=== PATIENT | female | born 1955 | race Caucasian/White ===

== ENCOUNTER → 2016-09-28 | Outpatient (CLI) | payer BC ==
[2016-09-28 10:11] LABS: Basophils % (A) 1 %; CH 31.8; CHCM 34.5; Eosinophils # (A) 0.1 k/uL (0-0.7); Eosinophils % (A) 3 %; HDW 2.69; HGB 14.2 gm/dL (11.4-16.0); Luc # (Auto) 0.13; Luc % (Auto) 3; Lymphocytes # (A) 1.9 k/uL (1.0-4.8); Lymphocytes % (A) 37 %; MCH 31.3 pg (25.0-35.0); MCHC 33.8 g/dL (31.0-37.0); MCV 92.5 fL (80.0-100.0); Mean Platelet Volume 7.2; Monocytes # (A) 0.3 k/uL (0-1.0); Monocytes % (A) 6 %; Neutrophils # (A) 2.8 k/uL (1.3-7.7); Neutrophils % (A) 52 %; RBC 4.54 m/uL (3.80-5.40); RDW 13.3 % (11.5-15.5); WBC 5.3 k/uL (3.8-10.6); WBC (Perox) 5.42
[2016-09-28 10:30] LABS: Appearance,Urine Clear (Clear); Bilirubin,Urine Negative (Negative); Glucose,Urine (UA) Negative (Negative); Ketones,Urine Negative (Negative); Leukocyte Esterase,Urine Negative (Negative); Nitrite,Urine Negative (Negative); Protein,Urine Negative (Negative); Specific Gravity,Urine 1.002 (1.001-1.035); UA Billing (MACRO vs. MICRO) CHEM; Urobilinogen,Urine <2.0 mg/dL (<2.0)
[2016-09-28 10:44] LABS: ALT 21 U/L (9-52); AST 26 U/L (14-36); Alkaline Phosphatase 79 U/L (38-126); Anion Gap 11 mmol/L; Blood Urea Nitrogen 17 mg/dL (7-17); Calcium 9.4 mg/dL (8.4-10.2); Carbon Dioxide 26 mmol/L (22-30); Chloride 103 mmol/L (98-107); Cholesterol 246 mg/dL (<200); Glucose 107 mg/dL (74-99); HDL Cholesterol 71 mg/dL (40-60); Non-African American GFR(MDRD) >60 (>60 ml/min/1.73 sqM); Potassium 3.6 mmol/L (3.5-5.1); Sodium 140 mmol/L (137-145); Total Bilirubin 0.7 mg/dL (0.2-1.3); Total Protein 7.9 g/dL (6.3-8.2); Triglycerides 134 mg/dL (<150)
[2016-09-28 11:24] LABS: Hepatitis C Virus IgG Index 0.02
[2016-10-03 09:35] LABS: Hepatitis C Virus IgG Ab Negative (Negative)
== END | disposition home or self-care (01) ==
LOC: LABWHC1 09:32
PROVIDERS: ATTEND Internal Medicine
DX: E78.5 Hyperlipidemia, unspecified (principal); I10 Essential (primary) hypertension; E55.9 Vitamin D deficiency, unspecified; Z13.9 Encounter for screening, unspecified
CPT/HCPCS: 36415; 80053; 80061; 81003; 82306; 84443; 85025; 86803

== ENCOUNTER → 2016-10-18 | Outpatient (CLI) | payer BC ==
--- NOTE | 2016-10-19 08:07 | PN ---
61 -year-old female patient with known history of obstructive sleep apnea with an AHI of 57. Currently on CPAP Pressure of 8 cm of water. She is coming in for a follow-up. She remains very compliant with CPAP therapy. She is asking for a new mask and supplies. She is on AirFit P10 medium-sized nasal pillow. She is also requesting a portable CPAP unit knowing that she and her have been traveling a lot recently and she will benefit from a portable unit. She is waking up alert and awake. No major hypersomnia or sleepiness during the day. Balmorhea score is only 6. Her treatment has been successful. No recent weight gain or weight loss. No other new complaints or any other comorbidities for now. BP is 160/84, pulse 80, respirations 16, temperature 98.8. Saturation is 98% on room air. Weight is 173. Height is 5 feet 1 inch. BMI is 32.6. GENERAL APPEARANCE: Calm, comfortable. HEENT: Short neck, crowding posterior pharynx. There is no goiter or neck masses. LUNGS: Clear to auscultation. HEART: Heart sounds are regular rate and rhythm. Normal S1, S2. ABDOMEN: Soft, nontender. No organomegaly. EXTREMITIES: No edema. No cyanosis or clubbing. IMPRESSION: Severe symptomatic obstructive sleep apnea with an AHI of 57, currently on CPAP at a pressure of 8 cm of water. Treatment remains successful. PLAN: 1. I ordered patient a portable CPAP unit at the same pressure of 8 cm. 2. Refilled AirFit P10 nasal pillows medium size. 3. Encourage weight loss. 4. Implement good sleep hygiene measures. 5. See me back in a year's time, earlier if needed.
== END ==
LOC: SLEEP 16:45
PROVIDERS: ATTEND Internal Medicine Critical Care Medicine
DX: G47.33 Obstructive sleep apnea (adult) (pediatric) (principal)

== ENCOUNTER 2017-01-03 17:26 | Emergency (ER) | payer BC ==
[2017-01-03] MEDS ORDERED: SODIUM CHLORIDE 0.9% 1,000 ML IV STA (18:12)
--- NOTE | 2017-01-03 18:14 | ED ---
General Adult HPI - General Chief complaint: Abdominal Pain Stated complaint: left flank pain Time Seen by Provider: 01/03/17 18:03 Source: patient, RN notes reviewed Mode of arrival: ambulatory Limitations: physical limitation - History of Present Illness Initial comments: Patient 61-year-old female who presents emergency room today with chief complaint of left-sided flank pain. Does admit that over the last 2 days has been experiencing a "grabbing" type pain. Currently rates it a 6/10. Denies any other associated symptoms or complaints. States never had similar symptoms in the past. Patient does admit that sometimes she is able to move certain ways and make her feel better when she bends over. Patient states otherwise has a difficult time finding a comfortable position. Patient denies any recent fever, chills, shortness of breath, chest pain, abdominal pain, nausea or vomiting, numbness or tingling, dysuria or hematuria, constipation or diarrhea, headaches or visual changes, or any other complaints. - Related Data Home Medications Medication Instructions Recorded Confirmed Melatonin 3 mg PO HS PRN 10/16/13 01/03/17 Ramipril [Altace] 10 mg PO QAM 10/16/13 01/03/17 Vitamin B Complex 1 cap PO QAM 10/16/13 01/03/17 amLODIPine [Norvasc] 5 mg PO QAM 10/16/13 01/03/17 Ascorbic Acid [Vitamin C] 1,000 mg PO QAM 01/03/17 01/03/17 Aspirin EC [Ecotrin Low Dose] 81 mg PO HS 01/03/17 01/03/17 Calcium Carbonate/Vitamin D3 2 cap PO QAM 01/03/17 01/03/17 [Calcium 600-Vit D3 500 Softgel] Glucosamine-Chondr 500-400Mg 3 tab PO QAM 01/03/17 01/03/17 Krill Oil 500 mg PO QAM 01/03/17 01/03/17 Metoprolol Tartrate [Lopressor] 25 mg PO QAM 01/03/17 01/03/17 Multivitamins, Thera [Multivitamin 1 tab PO QAM 01/03/17 01/03/17 (formulary)] Previous Rx's Medication Instructions Recorded Cyclobenzaprine [Flexeril] 10 mg PO TID #20 tab 01/03/17 Hydrocodone/Acetaminophen [Ducor 1 each PO Q6HR PRN #15 tab 01/03/17 5-325] Allergies Allergy/AdvReac Type Severity Reaction Status Date / Time clarithromycin [From Biaxin] Allergy Unknown Verified 01/03/17 17:54 sumatriptan [From Imitrex] Allergy Rapid Verified 01/03/17 17:54 Heart Rate Tetracyclines Allergy Swelling Verified 01/03/17 17:54 linezolid [From Zyvox] AdvReac Weakness Verified 01/03/17 19:51 In Legs rosuvastatin calcium AdvReac Myalgia Verified 01/03/17 19:51 [From Crestor] sulfamethoxazole AdvReac Fever Verified 01/03/17 19:51 [From Bactrim] trimethoprim [From Bactrim] AdvReac Fever Verified 01/03/17 19:51 Review of Systems ROS Statement: Those systems with pertinent positive or pertinent negative responses have been documented in the HPI. ROS Other: All systems not noted in ROS Statement are negative. Past Medical History Past Medical History: Hyperlipidemia, Hypertension Additional Past Medical History / Comment(s): bigemminal PAC's, History of Any Multi-Drug Resistant Organisms: MRSA Date of last positivie culture/infection: 2008 MDRO Source:: right leg Past Surgical History: Tubal Ligation Additional Past Surgical History / Comment(s): D&C Past Psychological History: No Psychological Hx Reported Smoking Status: Never smoker Past Alcohol Use History: Occasional Past Drug Use History: None Reported General Exam - General Exam Comments Initial Comments: General: The patient is awake and alert, in no distress, and does not appear acutely ill. Eye: Pupils are equal, round and reactive to light, extra-ocular movements are intact. No nystagmus. There is normal conjunctiva bilaterally. No signs of icterus. Ears, nose, mouth and throat: There are moist mucous membranes and no oral lesions. Neck: The neck is supple, there is no tenderness or JVD. Cardiovascular: There is a regular rate and rhythm. No murmur, rub or gallop is appreciated. Respiratory: Lungs are clear to auscultation, respirations are non-labored, breath sounds are equal. No wheezes, stridor, rales, or rhonchi. Gastrointestinal: Soft, non-distended, non-tender abdomen without masses or organomegaly noted. There is no rebound or guarding present. No CVA tenderness. Bowel sounds are unremarkable. Musculoskeletal: Normal ROM, no tenderness. Strength 5/5. Sensation intact. Pulses equal bilaterally 2+. Neurological: A&O x 3. CN II-XII intact, There are no obvious motor or sensory deficits. Coordination appears grossly intact. Speech is normal. Skin: Skin is warm and dry and no rashes or lesions are noted. Psychiatric: Cooperative, appropriate mood & affect, normal judgment. Limitations: physical limitation Course Vital Signs 01/03/17 01/03/17 17:50 19:17 Temperature 98 F 98.3 F Pulse Rate 93 76 Respiratory 18 16 Rate Blood Pressure 133/93 143/77 O2 Sat by Pulse 98 96 Oximetry Medical Decision Making - Medical Decision Making Patient reexamined at this time shows no signs of distress. She is resting comfortably in stretcher. Patient's CT of the abdomen and pelvis negative for any acute abnormalities. Labs been reviewed unremarkable. Patient at this time advised most likely musculoskeletal pain. Will be tried on a muscle relaxer short prescription of pain medication advised follow-up the family doctor over the next 2 days. - Lab Data Result diagrams: 01/03/17 18:27 01/03/17 18:27 Lab Results 01/03/17 01/03/17 01/03/17 Range/Units 18:27 18:27 18:27 WBC 7.3 (3.8-10.6) k/uL RBC 4.71 (3.80-5.40) m/uL Hgb 15.1 (11.4-16.0) gm/dL Hct 41.9 (34.0-46.0) % MCV 88.9 (80.0-100.0) fL MCH 32.1 (25.0-35.0) pg MCHC 36.1 (31.0-37.0) g/dL RDW 12.8 (11.5-15.5) % Plt Count 355 (150-450) k/uL Neutrophils % 55 % Lymphocytes % 36 % Monocytes % 5 % Eosinophils % 2 % Basophils % 1 % Neutrophils # 4.0 (1.3-7.7) k/uL Lymphocytes # 2.6 (1.0-4.8) k/uL Monocytes # 0.4 (0-1.0) k/uL Eosinophils # 0.1 (0-0.7) k/uL Basophils # 0.0 (0-0.2) k/uL Sodium 143 (137-145) mmol/L Potassium 4.7 (3.5-5.1) mmol/L Chloride 106 (98-107) mmol/L Carbon Dioxide 24 (22-30) mmol/L Anion Gap 13 mmol/L BUN 17 (7-17) mg/dL Creatinine 0.70 (0.52-1.04) mg/dL Est GFR (MDRD) Af Amer >60 (>60 ml/min/1.73 sqM) Est GFR (MDRD) Non-Af >60 (>60 ml/min/1.73 sqM) Glucose 84 (74-99) mg/dL Calcium 10.2 (8.4-10.2) mg/dL Total Bilirubin 1.2 (0.2-1.3) mg/dL AST 37 H (14-36) U/L ALT 23 (9-52) U/L Alkaline Phosphatase 114 (38-126) U/L Total Protein 8.5 H (6.3-8.2) g/dL Albumin 5.0 (3.5-5.0) g/dL Amylase 63 (30-110) U/L Lipase 257 (23-300) U/L Urine Color Light Yellow Urine Appearance Cloudy H (Clear) Urine pH 6.5 (5.0-8.0) Ur Specific [place] 1.007 (1.001-1.035) Urine Protein Negative (Negative) Urine Glucose (UA) Negative (Negative) Urine Ketones Negative (Negative) Urine Blood Negative (Negative) Urine Nitrite Negative (Negative) Urine Bilirubin Negative (Negative) Urine Urobilinogen <2.0 (<2.0) mg/dL Ur Leukocyte Esterase Negative (Negative) Ur Squamous Epith Cells <1 (0-4) /hpf Amorphous Sediment Rare H (None) /hpf Disposition Clinical Impression: Acute low back pain Disposition: HOME SELF-CARE Condition: Good Instructions: Acute Low Back Pain (ED) Additional Instructions: Please use medication as discussed. Please follow-up with family doctor in the next 2 days of symptoms have not improved. Please return to emergency room if the symptoms increase or worsen or for any other concerns. Prescriptions: Cyclobenzaprine [Flexeril] 10 mg PO TID #20 tab Hydrocodone/Acetaminophen [Ducor 5-325] 1 each PO Q6HR PRN #15 tab PRN Reason: Pain Referrals: Alfredo Elder MD [Primary Care Provider] - 1-2 days Time of Disposition: 20:13
[2017-01-03 18:37] LABS: Basophils % (A) 1 %; CH 31.7; CHCM 35.8; Eosinophils # (A) 0.1 k/uL (0-0.7); Eosinophils % (A) 2 %; HCT 41.9 % (34.0-46.0); HDW 2.83; HGB 15.1 gm/dL (11.4-16.0); Luc # (Auto) 0.17; Luc % (Auto) 2; Lymphocytes # (A) 2.6 k/uL (1.0-4.8); Lymphocytes % (A) 36 %; MCH 32.1 pg (25.0-35.0); MCHC 36.1 g/dL (31.0-37.0); MCV 88.9 fL (80.0-100.0); Mean Platelet Volume 7.2; Monocytes # (A) 0.4 k/uL (0-1.0); Monocytes % (A) 5 %; Neutrophils % (A) 55 %; RBC 4.71 m/uL (3.80-5.40); RDW 12.8 % (11.5-15.5); WBC 7.3 k/uL (3.8-10.6)
[2017-01-03 18:43] LABS: Amorphous Sediment,Urine Rare /hpf; Appearance,Urine Cloudy (Clear); Bilirubin,Urine Negative (Negative); Glucose,Urine (UA) Negative (Negative); Ketones,Urine Negative (Negative); Leukocyte Esterase,Urine Negative (Negative); Nitrite,Urine Negative (Negative); PH, Urine 6.5 (5.0-8.0); Particle Count 1844; Protein,Urine Negative (Negative); Specific Gravity,Urine 1.007 (1.001-1.035); Squamous Epithelial Cell,Urine <1 /hpf (0-4); UA Billing (MACRO vs. MICRO) MICRO; Urobilinogen,Urine <2.0 mg/dL (<2.0)
[2017-01-03 18:46] LABS: ALT 23 U/L (9-52); AST 37 U/L (14-36); Alkaline Phosphatase 114 U/L (38-126); Amylase 63 U/L (30-110); Anion Gap 13 mmol/L; Blood Urea Nitrogen 17 mg/dL (7-17); Calcium 10.2 mg/dL (8.4-10.2); Carbon Dioxide 24 mmol/L (22-30); Chloride 106 mmol/L (98-107); Glucose 84 mg/dL (74-99); Non-African American GFR(MDRD) >60 (>60 ml/min/1.73 sqM); Sodium 143 mmol/L (137-145); Total Bilirubin 1.2 mg/dL (0.2-1.3); Total Protein 8.5 g/dL (6.3-8.2)
[2017-01-03 18:49] LABS: Potassium 4.7 mmol/L (3.5-5.1)
--- NOTE | 2017-01-03 19:01 | XR ---
EXAMINATION TYPE: XR KUB DATE OF EXAM: 01/03/2017 COMPARISON: NONE HISTORY: Left flank pain TECHNIQUE: 2 upright radiographs FINDINGS: There are no calcifications visible over the kidneys, expected course of the ureters, or th e bladder. Bowel gas pattern is normal. No pneumatosis. No pneumoperitoneum. The skeletal structures and visuali zed soft tissues are unremarkable as seen. The visualized lung bases and pleural spaces are unremarkable. IMPRESSION: NO ACUTE PROCESS OR FOCAL FINDINGS.
[2017-01-03 19:19] VITALS: RESP 16
--- NOTE | 2017-01-03 19:49 | CT ---
EXAMINATION TYPE: CT abdomen pelvis wo con DATE OF EXAM: 01/03/2017 COMPARISON: NONE HISTORY: Left flank pain x [address] DLP: 622.20 mGycm. Automated exposure control for dose reduction was used. TECHNIQUE: Helical acquisition of images was performed from the lung bases through the pelvis. FINDINGS: LUNG BASES: No significant abnormality is appreciated. LIVER/GB: No significant abnormality is appreciated. PANCREAS: No significant abnormality is seen. SPLEEN: No significant abnormality is seen. ADRENALS: No significant abnormality is seen. KIDNEYS: There are bilateral nonobstructing renal calcifications measuring 1 and 2 mm. There is no hy dronephrosis. The ureters and urinary bladder are unremarkable. FREE AIR: No free air is visualized RETROPERITONEAL ADENOPATHY: None visualized REPRODUCTIVE ORGANS: No significant abnormality is seen PELVIC ADENOPATHY: None visualized. OSSEOUS STRUCTURES: No significant abnormality is seen. BOWEL: No significant abnormality is seen. OTHER: No focal skeletal findings. Limitation: Without intravenous contrast there is limited CT sensitivity for focal visceral lesions a nd for intraluminal filling defects. IMPRESSION: NO ACUTE PROCESS.
[2017-01-03 20:36] VITALS: BP 128/70; PULSE 74; TEMP 98
== END 2017-01-03 20:33 | disposition home or self-care (01) ==
LOC: EC 17:26
DX: M54.5 Low back pain (principal); R10.9 Unspecified abdominal pain; E78.5 Hyperlipidemia, unspecified; I10 Essential (primary) hypertension; Z79.82 Long term (current) use of aspirin; Z79.899 Other long term (current) drug therapy; Z88.1 Allergy status to other antibiotic agents; Z88.2 Allergy status to sulfonamides; Z88.8 Allergy status to other drugs, medicaments and biological substances
CPT/HCPCS: 36415; 74000; 74176; 80053; 81001; 82150; 83690; 85025; 96360; 99284

== ENCOUNTER → 2017-05-04 | Outpatient (CLI) | payer BC ==
--- NOTE | 2017-05-04 08:18 | MM ---
Reason for exam: screening (asymptomatic). Last mammogram was performed 1 year and 3 months ago. History: Patient is postmenopausal. Family history of breast cancer in mother at age 65. Benign core biopsy of the right breast, 1994. Physical Findings: A clinical breast exam by your physician is recommended on an annual basis and results should be correlated with mammographic findings. MG Screening Mammo w CAD Bilateral CC and MLO view(s) were taken. Prior study comparison: February 17, 2016, bilateral foundation screening mammo. October 07, 2014, bilateral MG screening mammo w CAD. The breast tissue is heterogeneously dense. This may lower the sensitivity of mammography. Stable benign calcifications. Waxing and waning lesion consistent with cysts. No significant changes when compared with prior studies. ASSESSMENT: Benign, BI-RAD 2 RECOMMENDATION: Routine screening mammogram of both breasts in 1 year.
== END | disposition home or self-care (01) ==
LOC: RADMAMWWP 09-07 15:21
PROVIDERS: ATTEND Surgery
DX: Z12.31 Encounter for screening mammogram for malignant neoplasm of breast (principal)

== ENCOUNTER → 2018-05-10 | Outpatient (CLI) | payer BC ==
--- NOTE | 2018-05-14 09:29 | MM ---
Reason for exam: screening (asymptomatic). Last mammogram was performed 1 year ago. History: Patient is postmenopausal. Family history of breast cancer in mother at age 65. Benign core biopsy of the right breast, 1994. Physical Findings: A clinical breast exam by your physician is recommended on an annual basis and results should be correlated with mammographic findings. MG 3D Screening Mammo W/Cad Bilateral CC and MLO view(s) were taken. Prior study comparison: May 04, 2017, bilateral MG screening mammo w CAD. February 17, 2016, bilateral MG foundation screening mammo. The breast tissue is heterogeneously dense. This may lower the sensitivity of mammography. No significant changes when compared with prior studies. ASSESSMENT: Benign, BI-RAD 2 RECOMMENDATION: Routine screening mammogram of both breasts in 1 year.
== END | disposition home or self-care (01) ==
LOC: RADMAMWWP 09:35
PROVIDERS: ATTEND Surgery
DX: Z12.31 Encounter for screening mammogram for malignant neoplasm of breast (principal)
CPT/HCPCS: 77063; 77067

== ENCOUNTER → 2018-05-25 | Outpatient (CLI) | payer BC ==
[2018-05-25 11:41] VITALS: BP 141/76; PULSE 73; RESP 16; TEMP 97; BMI 30.9
--- NOTE | 2018-05-25 12:16 | P.GSHP ---
History of Present Illness H&P Date: 05/25/18 Chief Complaint: fibrocystic breast changes Britany is a 63-year-old white female who is status post bilateral mammogram in April 2018. This did not show any specific lesions of concern it was benign BIRADS 2 and routine screening of both breasts 1 year is recommended. The patient does not feel any masses or lumps in her breast. She did have benign core biopsy of the right breast in 1994. She does have a family history of breast cancer in her mother at the age of 65. The patient does not report any nipple discharge or skin changes. She has no history of any trauma or infection in the breast. Family history: 1. mother: breast at 65 Hormonal History: menarche: 13 : 3, first at 30, breast fed: all menopause: 47 BCP:none hormones: none Past past surgical history: 1. D&C 2. tubaligation Medical History 1. HTN 2. palpatation Social Hisotory: smoke: none alcohol: occasional drugs: none - Constitutional Constitutional: Denies chills, Denies fever - EENT Eyes: denies blurred vision, denies pain Ears, nose, mouth and throat: Denies headache, Denies sore throat - Breasts Breasts: bilateral: as per HPI - Cardiovascular Comment: palpitations, HTN Cardiovascular: Denies chest pain, Denies shortness of breath - Respiratory Comment: pneumonia in past Respiratory: Denies cough, Denies 7 - Gastrointestinal Gastrointestinal: Denies abdominal pain, Denies diarrhea, Denies nausea, Denies vomiting - Genitourinary (Female) Genitourinary: Denies dysuria, Denies hematuria - Menstruation Menstruation: Reports postmenopausal - Musculoskeletal Musculoskeletal: Denies myalgias - Integumentary Integumentary: Denies pruritus, Denies rash - Neurological Neurological: Denies numbness, Denies weakness - Psychiatric Psychiatric: Denies anxiety, Denies depression - Endocrine Endocrine: Denies fatigue, Denies weight change - Hematologic/Lymphatic Comment: aspirin - Allergic/Immunologic Allergic/Immunologic: Reports seasonal allergies Past Medical History Past Medical History: Hyperlipidemia, Hypertension Additional Past Medical History / Comment(s): bigemminal PAC's, History of Any Multi-Drug Resistant Organisms: MRSA Date of last positivie culture/infection: 2008 MDRO Source:: right leg Past Surgical History: Tubal Ligation Additional Past Surgical History / Comment(s): D&C Past Psychological History: No Psychological Hx Reported Smoking Status: Never smoker Past Alcohol Use History: Occasional Past Drug Use History: None Reported Medications and Allergies Home Medications Medication Instructions Recorded Confirmed Type Melatonin 3 mg PO HS PRN 10/16/13 05/25/18 History Vitamin B Complex 1 cap PO QAM 10/16/13 05/25/18 History amLODIPine [Norvasc] 5 mg PO QAM 10/16/13 05/25/18 History Ascorbic Acid [Vitamin C] 1,000 mg PO QAM 01/03/17 05/25/18 History Aspirin EC [Ecotrin Low Dose] 81 mg PO HS 01/03/17 05/25/18 History Calcium Carbonate/Vitamin D3 2 cap PO QAM 01/03/17 05/25/18 History [Calcium 600-Vit D3 500 Softgel] Glucosamine-Chondr 500-400Mg 3 tab PO QAM 01/03/17 05/25/18 History Krill Oil 500 mg PO QAM 01/03/17 05/25/18 History Metoprolol Tartrate [Lopressor] 25 mg PO QAM PRN 01/03/17 05/25/18 History Multivitamins, Thera [Multivitamin 1 tab PO QAM 01/03/17 05/25/18 History (formulary)] Losartan Potassium 100 mg PO DAILY 05/25/18 05/25/18 History Nadolol [Corgard] 20 mg PO DAILY 05/25/18 05/25/18 History Allergies Allergy/AdvReac Type Severity Reaction Status Date / Time clarithromycin [From Biaxin] Allergy Unknown Verified 05/25/18 11:41 sumatriptan [From Imitrex] Allergy Rapid Verified 05/25/18 11:41 Heart Rate Tetracyclines Allergy Swelling Verified 05/25/18 11:41 linezolid [From Zyvox] AdvReac Weakness Verified 05/25/18 11:41 In Legs rosuvastatin calcium AdvReac Myalgia Verified 05/25/18 11:41 [From Crestor] sulfamethoxazole AdvReac Fever Verified 05/25/18 11:41 [From Bactrim] trimethoprim [From Bactrim] AdvReac Fever Verified 05/25/18 11:41 Surgical - Exam Vital Signs Temp Pulse Resp BP Pulse Ox 97.0 F L 73 16 141/76 98 05/25/18 11:37 05/25/18 11:37 05/25/18 11:37 05/25/18 11:37 05/25/18 11:37 BMI 31 - General well developed, well nourished, no distress - Eyes normal ocular movement, no icteric - ENT no hearing loss, no congestion - Neck no masses, trachea midline - Respiratory normal respiratory effort, clear to auscultation - Cardiovascular Rhythm: regular Heart Sounds: normal: S1, S2 - Abdomen Abdomen: soft, non tender, no guarding, no rigid, no rebound - Integumentary Small skin change on the left forearm for which patient is been recommended to have excision no rash - Neurologic no disoriented, no combative - Musculoskeletal normal gait, normal posture - Psychiatric oriented to time, oriented to person, oriented to place, speech is normal, memory intact breast exam: right breast: multipositional exam no dominant masses or nodules of concern Right axilla: No adenopathy of concern Left breast: Multi-positional exam no dominant masses or nodules of concern Left axilla: No adenopathy of concern Results Mammogram results reviewed Assessment and Plan Assessment: Impression: 1. Fibrocystic breast changes 2. Hypertension 3. Intermittent palpitations 4. family history of breast cancer Plan: 1. Repeat bilateral mammogram in 1 year with physician exam at that time 2. Medical management of medical conditions CC: Alfredo Elder
== END | disposition home or self-care (01) ==
LOC: WWCWWP 11:05
PROVIDERS: ATTEND Surgery
DX: Z53.9 Procedure and treatment not carried out, unspecified reason (principal)

== ENCOUNTER → 2018-06-12 | Outpatient (CLI) | payer BC ==
--- NOTE | 2018-06-12 17:30 | PN ---
PROGRESS NOTE Britany is a 63-year-old female patient with severe obstructive sleep apnea with an AHI of 57. I saw this patient in my main office approximately 2 months ago and I offered her a new CPAP machine, knowing that her older machine was not functioning appropriately. The patient is coming in today for a compliancy check. She is very happy with her new machine. She was obtained heated tubing, which has made the humidification airways and her upper and lower airways much more comfortable. The patient is using her CPAP every night. Her compliancy for more than 4 hours is 100%. She is averaging about 7.9 hours of CPAP use per night. Leak is 8 L/minute. AHI is down to 2.8. Her [place] score is down to 2. The patient is alert and awake during the day. No recent weight gain or weight loss. She is utilizing an AirFit P10 medium- sized nose mask. She is benefitting from treatment. She has no specific complaints. PHYSICAL EXAMINATION: BP is 135/85, pulse 82, respirations 16, temperature 98.2, saturation 95% on room air. GENERAL APPEARANCE: Calm, comfortable. No acute distress. Head is atraumatic, normocephalic. NECK: Supple. No JVD. No goiter or neck mass. LUNGS: Clear to auscultation. Heart sounds are regular rate and rhythm. Normal S1, S2. No S3, S4. No murmurs. ABDOMEN: Soft, nontender. No organomegaly. EXTREMITIES: No edema. No cyanosis or clubbing. NEUROLOGIC: Alert and oriented x3. No focal neurological deficit. PSYCHIATRIC: Negative for anxiety or depression. IMPRESSION: Severe obstructive sleep apnea; apnea/hypopnea index of 57, currently on CPAP pressure of 8 with excellent clinical response and compliance. PLAN: 1. Continue same pressure setting. 2. Continue same mask interface. 3. No need for any further adjustment. The machine was checked. The patient is compliant. See me back in a year's time, earlier if needed. MMODL / IJN: [id number] /
== END | disposition home or self-care (01) ==
LOC: SLEEP 15:43
PROVIDERS: ATTEND Internal Medicine Critical Care Medicine
DX: G47.33 Obstructive sleep apnea (adult) (pediatric) (principal); Z99.89 Dependence on other enabling machines and devices

== ENCOUNTER → 2018-12-27 | Outpatient (CLI) | payer BC ==
[2018-12-27 18:58] LABS: African American GFR (CKD) 112.4 (60.0-200.0); Anion Gap 10.2 mmol/L (4.00-12.00); BUN/Creat Ratio 26.67 Ratio (12.00-20.00); Calcium 9.2 mg/dL (8.7-10.3); Carbon Dioxide 26.8 mmol/L (21.6-31.8); LDL Cholesterol,Calculated 173.4 mg/dL (0.0-131.0); Potassium 3.9 mmol/L (3.5-5.5); VLDL Calculation 27.6 mg/dL (5.00-40.00)
[2018-12-27 19:06] LABS: T4, Free (Free Thyroxine) 1.1 ng/dL (0.80-1.80)
== END | disposition home or self-care (01) ==
LOC: LABWHC1 13:08
PROVIDERS: ATTEND Nurse Practitioner Adult Health
DX: E78.2 Mixed hyperlipidemia (principal); E03.9 Hypothyroidism, unspecified
CPT/HCPCS: 36415; 80048; 80061; 84439; 84443

== ENCOUNTER → 2019-05-23 | Outpatient (CLI) | payer BC ==
--- NOTE | 2019-05-24 14:27 | MM ---
Reason for exam: screening (asymptomatic). Last mammogram was performed 1 year ago. History: Patient is postmenopausal. Family history of breast cancer in mother at age 65. Benign core biopsy of the right breast, 1994. Physical Findings: A clinical breast exam by your physician is recommended on an annual basis and results should be correlated with mammographic findings. MG 3D Screening Mammo W/Cad Bilateral CC and MLO view(s) were taken. Prior study comparison: May 10, 2018, bilateral MG 3d screening mammo w/cad. May 04, 2017, bilateral MG screening mammo w CAD. The breast tissue is heterogeneously dense. This may lower the sensitivity of mammography. There is chronic nodularity bilaterally. There is no discrete abnormality. ASSESSMENT: Benign, BI-RAD 2 RECOMMENDATION: Routine screening mammogram of both breasts in 1 year.
== END | disposition home or self-care (01) ==
LOC: RADMAMWWP 11:03
PROVIDERS: ATTEND Surgery
DX: Z12.31 Encounter for screening mammogram for malignant neoplasm of breast (principal)
CPT/HCPCS: 77063; 77067

== ENCOUNTER → 2019-05-30 | Outpatient (CLI) | payer BC ==
[2019-05-30 10:51] VITALS: BP 133/75; PULSE 78; RESP 16; TEMP 98.4
--- NOTE | 2019-05-30 11:14 | P.PN ---
Subjective Progress Note Date: 05/30/19 Principal diagnosis: Surveillance fibrocystic breast changes Britany a 64-year-old white female who presents for breast examination secondary to fibrocystic breast changes. She underwent a bilateral mammogram on 1919 which revealed benign BIRADS 2 findings. This showed chronic nodularity bilaterally with no discrete abnormality. The patient does not report any lumps masses or nodules in her breasts. She is not complaining of any pain in her breast. She has no history of any trauma to her breast. No recent infection in her breast. Patient does not use any sort products. She does not take any hormone replacement. Caffeine: Negative Smoke: Negative Chocolate: Occasional Family history: Mother: Breast cancer at 65 Hormonal history: Menarche: 13 Pregnancies: 3, first at 30, breast-fed: All Menopause: 47 control pills: Negative Hormones: Negative Past surgical history: 1. D&C 2. Tubal ligation Medical history: Hypertension 2. Palpitation Social history: Spell: Negative Alcohol: Negative Drugs: Negative Constitutional: HEENT: Negative Cardiovascular: Palpitations at times Respiratory: Negative GI: Negative : Negative Musculoskeletal: Lower back pain Neurologic: Negative Psychiatric: Negative Endocrine: Negative Hematologic: Aspirin daily Objective - Vital Signs Vital signs: Vital Signs Temp 98.4 F 05/30/19 10:48 Pulse 78 05/30/19 10:48 Resp 16 05/30/19 10:48 BP 133/75 05/30/19 10:48 Pulse Ox 99 05/30/19 10:48 Intake & Output 05/29/19 05/30/19 05/30/19 18:59 06:59 18:59 Weight 79.379 kg - Exam BMI 31 - Constitutional General appearance: Present: average body habitus - EENT Eyes: Present: EOMI ENT: Present: hearing grossly normal - Neck Details: no adenopathy of concern Neck: Present: normal ROM Thyroid: bilateral: normal size - Respiratory Respiratory: bilateral: CTA - Cardiovascular Rhythm: regular Heart sounds: normal: S1, S2 - Gastrointestinal General gastrointestinal: Present: normal bowel sounds, soft - Integumentary Integumentary: Present: normal turgor - Musculoskeletal Musculoskeletal: Present: gait normal - Psychiatric Psychiatric: Present: A&O x's 3, appropriate affect, intact judgment & insight - Additional findings Additional findings: breast exam: bra 38C Inspection: No upper inversion, there is some minimal dimpling at the lateral aspect of each nipple area complex which is non-worrisome when the arms are placed otherwise no skin lesions of concern Right breast: Multi-positional exam no dominant masses or nodules of concern fibrocystic changes Right axilla: No adenopathy of concern Left breast: Multi-positional exam fibrocystic changes no dominant mass or not chills of concern Left axilla: No adenopathy of concern Assessment and Plan Assessment: Impression: 1. fibrocystic breast changes 2. Hypertension 3. Intermittent palpitations 4. Family history of breast cancer Plan: 1. Repeat bilateral mammogram in 1 year with physical exam at that time 2. Medical management of medical conditions 3. patient does breast self exam we have discussed this We have discussed fibrocystic breast changes. The patient does not smoke or drink caffeinated beverages. She does eat chocolate occasionally. We've also discussed the fact that she has some mild dimpling at the lateral aspect of the periareolar region bilaterally and she is going to watch this. There is nothing radiographically of concern at this site and there is nothing on physical exam palpated of concern at the sites. The patient will continue to do breast self exams and we have discussed the method for this. Cc: Dr. Elder encounter 15 minutes, > 50% of time in planning and counselling.
== END ==
LOC: WWCWWP 10:41
PROVIDERS: ATTEND Surgery
DX: Z53.9 Procedure and treatment not carried out, unspecified reason (principal)

== ENCOUNTER → 2020-05-26 | Outpatient (CLI) | payer MEDICARE ==
--- NOTE | 2020-05-27 13:28 | MM ---
Reason for exam: screening (asymptomatic). Last mammogram was performed 1 year ago. History: Patient is postmenopausal. Family history of breast cancer in mother at age 65. Benign core biopsy of the right breast, 1994. Physical Findings: A clinical breast exam by your physician is recommended on an annual basis and results should be correlated with mammographic findings. MG 3D Screening Mammo W/Cad Bilateral CC and MLO view(s) were taken. Prior study comparison: May 23, 2019, bilateral MG 3d screening mammo w/cad. May 10, 2018, bilateral MG 3d screening mammo w/cad. The breast tissue is heterogeneously dense. This may lower the sensitivity of mammography. There are benign appearing round calcifications bilaterally. There is chronic nodularity bilaterally. There is no discrete abnormality. Right skin lesions with calcifications. ASSESSMENT: Benign, BI-RAD 2 RECOMMENDATION: Routine screening mammogram of both breasts in 1 year.
== END | disposition home or self-care (01) ==
LOC: RADMAMWWP 09:01
PROVIDERS: ATTEND Surgery
DX: Z12.31 Encounter for screening mammogram for malignant neoplasm of breast (principal)
CPT/HCPCS: 77063; 77067

== ENCOUNTER → 2020-05-29 | Outpatient (CLI) | payer BC, MEDICARE ==
[2020-05-29 10:08] VITALS: BP 151/78; PULSE 77; RESP 18; TEMP 98.9
--- NOTE | 2020-05-29 10:36 | P.PN ---
Subjective Progress Note Date: 05/29/20 Principal diagnosis: Surveillance fibrocystic disease Surveillance fibrocystic breast changes Britany a 64-year-old white female who presents for breast examination secondary to fibrocystic breast changes. She underwent a bilateral mammogram on 05-26-20 which was benign BIRADS 2 findings. This showed chronic nodularity bilaterally with no discrete abnormality. The patient does not report any lumps masses or nodules in her breasts. She is not complaining of any nipple discharge. She did have a superficial folliculitis on the left breast which is resolving. She is not complaining of any pain in her breast. She has no history of any trauma to her breast. No recent infection in her breast. Patient does not use any soy products. She does not take any hormone replacement. Caffeine: Negative Smoke: Negative Chocolate: Occasional Family history: Mother: Breast cancer at 65 Hormonal history: Menarche: 13 Pregnancies: 3, first at 30, breast-fed: All Menopause: 47 control pills: Negative Hormones: Negative Past surgical history: 1. D&C 2. Tubal ligation 3. total knee replacement left Medical history: 1. Hypertension 2. Palpitation Social history: Smoke: Negative Alcohol: Negative Drugs: Negative Constitutional: HEENT: Negative Cardiovascular: Palpitations at times Respiratory: Negative GI: Negative : Negative Musculoskeletal: Lower back pain Neurologic: Negative Psychiatric: Negative Endocrine: Negative Hematologic: Aspirin daily Objective - Vital Signs Vital signs: Vital Signs Temp 98.9 F 05/29/20 10:06 Pulse 77 05/29/20 10:06 Resp 18 05/29/20 10:06 BP 151/78 05/29/20 10:06 Pulse Ox 96 05/29/20 10:06 Intake & Output 05/28/20 05/29/20 05/29/20 18:59 06:59 18:59 Weight 77.111 kg - Exam BMI 30.1 - Constitutional General appearance: Present: average body habitus - EENT Eyes: Present: EOMI ENT: Present: hearing grossly normal - Respiratory Respiratory: bilateral: CTA - Cardiovascular Rhythm: regular Heart sounds: normal: S1, S2 - Gastrointestinal General gastrointestinal: Present: normal bowel sounds, soft - Musculoskeletal Musculoskeletal Comment(s): recent left knee replacement Musculoskeletal: Present: gait normal - Psychiatric Psychiatric: Present: A&O x's 3, appropriate affect - Additional findings Additional findings: breast exam: BRA: 38C inspection: no nipple invasion; minimal dimpling with the arms extended at the lateral aspect of each upper outer quadrant area which has not changed from last year Palpation: Right breast: Multi-positional exam no dominant masses or nodules of concern fibrocystic changes Right axilla: No adenopathy of concern Left breast: Multi-positional exam no dominant masses or nodules of concern, fibrocystic changes; infection under her left breast, minimal area of folliculitis on the left periareolar area which is resolving Left axilla: No adenopathy of concern Assessment and Plan Assessment: Impression: 1. Fibrocystic breast changes 2. Hypertension 3. Intermittent palpitations 4. Family history of breast cancer 5. Fungal infection under her left breast patient has nystatin cream A folliculitis of the left breast which is resolving Plan: 1. Continue nystatin and antibiotic which was given for folliculitis 2. Bilateral mammogram in 1 year physician exam 2. Medical management of medical conditions Cc: encounter 15 minutes, > 50% of time in planning and counselling
== END | disposition home or self-care (01) ==
LOC: WWCWWP 09:46
PROVIDERS: ATTEND Surgery
DX: Z53.9 Procedure and treatment not carried out, unspecified reason (principal)

== ENCOUNTER → 2020-06-16 | Outpatient (CLI) | payer MEDICARE ==
[2020-06-16 22:40] LABS: Basophils # (A) 0.04 X 10*3/uL (0.00-0.10); Basophils % (A) 0.5 %; Eosinophils # (A) 0.03 X 10*3/uL (0.04-0.35); Eosinophils % (A) 0.4 %; HCT 41.3 % (37.2-46.3); HGB 14.7 g/dL (12.0-15.0); Lymphocytes % (A) 23.9 %; MCH 31.7 pg (27.0-32.0); MCHC 35.6 g/dL (32.0-37.0); MCV 89.2 fL (80.0-97.0); Mean Platelet Volume 11.1 fL (9.5-12.2); Monocytes # (A) 0.64 X 10*3/uL (0.20-1.00); Monocytes % (A) 8.5 %; Neutrophils # (A) 4.99 X 10*3/uL (1.80-7.70); Neutrophils % (A) 66.4 %; Platelet Count 377 X 10*3/uL (140-440); RBC 4.63 X 10*6/uL (4.10-5.20); RDW 12.5 % (11.5-14.5); WBC 7.52 X 10*3/uL (4.50-10.00)
[2020-06-17 01:19] LABS: Erythrocyte Sedimentation Rate 29 mm/Hr (0-30)
== END | disposition home or self-care (01) ==
LOC: LABWHC1 14:38
PROVIDERS: ATTEND Internal Medicine
DX: R53.83 Other fatigue (principal)
CPT/HCPCS: 36415; 82375; 82550; 85025; 85652

== ENCOUNTER → 2021-04-06 | Outpatient (CLI) | payer MEDICARE ==
--- NOTE | 2021-04-06 16:41 | PN ---
PROGRESS NOTE 65-year-old female patient with known history of obstructive sleep apnea with an AHI of 57, and the patient is coming in for annual check regarding obstructive sleep apnea. She continues to be using CPAP therapy at a pressure of 8 cm of water. She is using AirFit P10 medium-size nasal pillows. Doing well. No specific complaints in terms of her sleep apnea. Based on the compliance data evaluation, the patient has been averaging around 7.1 hour of CPAP use per night. Her CPAP use for more than 4 hours is 100%. Her AHI is down to 1.5 with a leak of 18 L/minute. No weight loss or weight gain. The patient's blood pressure is noted to be slightly elevated. She is working with Cardiology for a tighter blood pressure control. She was taken off the [facility] as the patient had developed increased edema in lower extremities bilaterally. She is on nadolol for now in combination with losartan. She is post Covid 19 vaccination. She was also diagnosed having lumbar spine stenosis which has caused some increased weakness lower extremities bilaterally. REVIEW OF SYSTEMS: Fourteen-point review of system was done. Positive for some post vaccination weakness in lower extremities which ultimately turned out to be related to spinal stenosis. She has also undergone a left knee replacement. No fever. No chills. No hypersomnia or sleepiness during the day. No other new complaints. Weight is stable. PHYSICAL EXAMINATION: VITAL SIGNS: BP is 176/88, pulse 78, respirations 16, temperature 97.6. Saturation 98% on room air. Height is 5 feet 1 inch, weight is 150. BMI 28.1. [place] score is at 4. GENERAL APPEARANCE: Calm, comfortable. Head is atraumatic normocephalic. NECK: Supple. No JVD. No goiter or neck masses. Mallampati class 4. LUNGS: Clear to auscultation. HEART: Heart sounds are regular rate and rhythm. Normal S1, S2. No S3, no murmurs. ABDOMEN: Soft, nontender. No organomegaly. EXTREMITIES: No edema, no cyanosis or clubbing. IMPRESSION: 1. Obstructive sleep apnea AHI of 57 currently on CPAP pressure of 8. Treatment successful. 2. Hypersomnia. [place] score is down to 4. Clinically stable. 3. Post Covid 19 vaccination. 4. Lumbar spine stenosis. 5. Degenerative arthritis, post knee replacement. 6. Hypertension with suboptimal control of blood pressure. PLAN: 1. Continue CPAP at same level of pressure. 2. Renew supplies including the AirFit P 10 medium-size nasal pillow. 3. Follow up with Cardiology regarding tighter blood pressure control. Consider the addition of a hydrochlorothiazide as an adjunct for a tighter blood pressure control. We will continue to follow. MMODL / IJN: [id number] /
== END ==
LOC: SLEEP 14:04
PROVIDERS: ATTEND Internal Medicine Critical Care Medicine
DX: G47.33 Obstructive sleep apnea (adult) (pediatric) (principal); M48.061 Spinal stenosis, lumbar region without neurogenic claudication; I10 Essential (primary) hypertension; Z96.659 Presence of unspecified artificial knee joint; Z99.89 Dependence on other enabling machines and devices; Z88.1 Allergy status to other antibiotic agents; Z88.2 Allergy status to sulfonamides; Z88.8 Allergy status to other drugs, medicaments and biological substances

== ENCOUNTER → 2021-04-23 | Outpatient (CLI) | payer MEDICARE ==
[~2021-04-23] MED LIST: CASIRIVIMAB (REGN10933) (EUA) 600 MG, IMDEVIMAB (REGN10987) (EUA) 600 MG in SODIUM CHLO... IVPB ONE; SODIUM CHLORIDE 0.9% 50 ML IVPB ONE; SODIUM CHLORIDE 0.9% 500 ML 500 ML in EMPTY BAG 1 BAG IV PRN
[2021-04-23 14:46] VITALS: BP 152/75; PULSE 80; RESP 18
[2021-04-23 15:12] VITALS: TEMP 99.2
== END | disposition home or self-care (01) ==
LOC: PROCWHC3 14:12
PROVIDERS: ATTEND Internal Medicine
DX: U07.1 COVID-19 (principal)
CPT/HCPCS: 96360; Q0244; M0243

== ENCOUNTER → 2021-05-27 | Outpatient (CLI) | payer MEDICARE ==
--- NOTE | 2021-05-31 12:15 | MM ---
Reason for exam: screening (asymptomatic). Last mammogram was performed 1 year ago. History: Patient is postmenopausal. Family history of breast cancer in mother at age 65. Benign core biopsy of the right breast, 1994. Physical Findings: A clinical breast exam by your physician is recommended on an annual basis and results should be correlated with mammographic findings. MG 3D Screening Mammo W/Cad Bilateral CC and MLO view(s) were taken. Prior study comparison: May 26, 2020, bilateral MG 3d screening mammo w/cad. May 23, 2019, bilateral MG 3d screening mammo w/cad. The breast tissue is heterogeneously dense. This may lower the sensitivity of mammography. There are benign appearing round calcifications bilaterally. There is chronic nodularity in the right breast. There is no discrete abnormality. ASSESSMENT: Benign, BI-RAD 2 RECOMMENDATION: Routine screening mammogram of both breasts in 1 year.
== END | disposition home or self-care (01) ==
LOC: RADMAMWWP 15:02
PROVIDERS: ATTEND Surgery
DX: Z12.31 Encounter for screening mammogram for malignant neoplasm of breast (principal); Z78.0 Asymptomatic menopausal state; Z80.3 Family history of malignant neoplasm of breast
CPT/HCPCS: 77063; 77067

== ENCOUNTER → 2021-07-08 | Outpatient (CLI) | payer MEDICARE ==
[2021-07-08 16:02] VITALS: BP 156/89; PULSE 71; RESP 16; TEMP 98.2
--- NOTE | 2021-07-08 16:12 | P.PN ---
Subjective Progress Note Date: 07/08/21 Principal diagnosis: fibrocystic breast changes Surveillance fibrocystic disease Britany a 66-year-old white female who presents for breast examination secondary to fibrocystic breast changes. She underwent a bilateral mammogram on 05-27-21 which was benign BIRADS 2 findings. This showed chronic nodularity in the right breast with no discrete abnormality. The patient does not report any lumps masses or nodules in her breasts. She is not complaining of any nipple discharge. She is not complaining of any pain in her breast. She has no history of any trauma to her breast. No recent infection in her breast. Patient does not use any soy products. She does not take any hormone replacement. Caffeine: Negative Smoke: Negative Chocolate: Occasional Family history: Mother: Breast cancer at 65 Hormonal history: Menarche: 13 Pregnancies: 3, first at 30, breast-fed: All Menopause: 47 control pills: Negative Hormones: Negative Past surgical history: 1. D&C 2. Tubal ligation 3. total knee replacement left Medical history: 1. Hypertension 2. Palpitation 3. high cholesterol Social history: Smoke: Negative Alcohol: Negative Drugs: Negative Constitutional: HEENT: Negative Cardiovascular: Palpitations at times Respiratory: Negative GI: Negative : Negative Musculoskeletal: Lower back pain Neurologic: Negative Psychiatric: Negative Endocrine: Negative Hematologic: Aspirin daily Objective - Vital Signs Vital signs: Intake & Output 07/07/21 07/08/21 07/08/21 18:59 06:59 18:59 Weight 68.946 kg - Constitutional General appearance: Present: cooperative - EENT Eyes: Present: EOMI ENT: Present: hearing grossly normal - Neck Neck: Present: normal ROM - Respiratory Respiratory: bilateral: CTA - Cardiovascular Rhythm: regular Heart sounds: normal: S1, S2 - Gastrointestinal General gastrointestinal: Present: soft - Integumentary Integumentary: Present: normal turgor - Musculoskeletal Musculoskeletal: Present: gait normal - Psychiatric Psychiatric: Present: A&O x's 3, appropriate affect, intact judgment & insight - Additional findings Additional findings: Breast Exam: BRA: 38C inspection: grade 2 ptosis bilaterally Palpation: Right breast: Multiple positional exam fibrocystic changes no dominant masses or nodules of concern nevus lateral aspect of the breast which is increased in size right axilla: No adenopathy of concern Left breast: Multi-positional exam fibrocystic changes no dominant masses or nodules of concern Left axilla: No adenopathy of concern Assessment and Plan Assessment: Impression: Fibrocystic breast changes stable Bilateral mammogram [id number] benign BIRADS 2 Enlarging nevus right lateral breast to be removed Plan: Repeat bilateral mammogram in 1 year/follow-up after bilateral mammogram Excision of nevus of right breast lateral aspect in the office The skin benefits of the procedure discussed with the patient she understands and wishes to proceed Cc: Dr. Antunez
== END ==
LOC: WWCWWP 15:39
PROVIDERS: ATTEND Surgery
DX: N60.11 Diffuse cystic mastopathy of right breast (principal); N60.12 Diffuse cystic mastopathy of left breast; D22.5 Melanocytic nevi of trunk; B36.8 Other specified superficial mycoses; I10 Essential (primary) hypertension; E78.00 Pure hypercholesterolemia, unspecified; Z88.1 Allergy status to other antibiotic agents; Z88.2 Allergy status to sulfonamides; Z88.8 Allergy status to other drugs, medicaments and biological substances

== ENCOUNTER → 2021-09-03 | Outpatient (CLI) | payer MEDICARE ==
[2021-09-03 12:58] VITALS: BP 168/80; PULSE 83; RESP 18
--- NOTE | 2021-09-03 13:05 | P.PN ---
Progress Note - Text Progress Note Date: 09/03/21 Patient is status post excision of skin lesions right breast on . Pathology revealed seborrheic keratosis. Patient tolerated procedure without difficulty. Physical exam: Incisions clean and dry Plan: Follow up one year for breast examination and bilateral mammogram Patient follow-up sooner if questions or concerns CC: Dr. Antunez
== END ==
LOC: WWCWWP 12:39
PROVIDERS: ATTEND Surgery
DX: Z48.817 Encounter for surgical aftercare following surgery on the skin and subcutaneous tissue (principal); L82.1 Other seborrheic keratosis; Z88.1 Allergy status to other antibiotic agents; Z88.2 Allergy status to sulfonamides; Z88.8 Allergy status to other drugs, medicaments and biological substances; Z88.6 Allergy status to analgesic agent

== ENCOUNTER → 2021-11-25 | Outpatient (CLI) | payer MEDICARE ==
--- NOTE | 2021-11-25 15:07 | BD ---
EXAMINATION TYPE: Axial Bone Density DATE OF EXAM: 11/25/2021 COMPARISON: NONE CLINICAL HISTORY: 66 years year old Female. ICD-10 CODE: M85.852 OSTEOPENIA LT HIP Height: 61.5 Weight: 165 FRAX RISK QUESTIONS: Alcohol (3 or more units per day): NO Family History (Parent hip fracture): NO Glucocorticoids (More than 3mos): NO History of Fracture in Adulthood: NO Secondary Osteoporosis: 1. Type 1 Diabetes: NO 2. Hyperthyroidism: NO 3. Menopause before 45: NO 4. Malnutrition: NO 5. Chronic liver disease: NO Rheumatoid Arthritis: NO Current Tobacco Use: NO RISK FACTORS HISTORY OF: Hip Fracture (Right/Left): NO Spine Fracture: NO History of Wrist Fracture: NO Surgery to Spine/Hip(right/left)/Wrist (right/left): NO Family History of Osteoporosis: MOTHER Active: YES Diet low in dairy products/other sources of calcium: NO Postmenopausal woman: YES Take estrogen and/or progesterone medications: NO Lost more than 2 inches in height since high school: NO Frequent falls: NO Poor Health: NO Hyperparathyroidism: NO Adrenal Insufficiency: NO MEDICATIONS: Prednisone or other steroids: NO Thyroid Medications: NO Osteoporosis Medications: NO Additional Medications: LOSARTAN, AMLODIPINE, FLUVASTATIN, CHOLESTYRAMINE, CALCIUM, , VIT D EXAM MEASUREMENTS: Bone mineral densitometry was performed using the [employer] Digital System. Bone mineral density as measured about the Lumbar spine is: ----- L1-L4(G/cm2): 0.868 T Score Values are as follows: ----- L1: -2.2 ----- L2: -1.8 ----- L3: -0.8 ----- L4: -1.0 ----- L1-L4: -1.4 BASELINE STUDY Bone mineral density about the R hip (g/cm2): 0.838 Bone mineral density about the L hip (g/cm2): 0.715 T Score values are as follows: -----R Neck: -1.4 -----L Neck: -2.3 -----R Total: -0.6 -----L Total: -1.3 BASELINE STUDY FRAX%s: The graph provided illustrates a 12.3% chance for a major osteoporotic fx and a 2.4% chance f or the hips probability for fx in 10 years time. IMPRESSION: Osteopenia (T Score between -2.5 and -1). There is slightly increased risk of fracture and the patient may be considered for treatment. Re-Screen 2-5 years. NOTE: T-SCORE=SD OF THE YOUNG ADULT MEAN.
== END | disposition home or self-care (01) ==
LOC: RADBDWWP 13:18
PROVIDERS: ATTEND Internal Medicine
DX: M85.89 Other specified disorders of bone density and structure, multiple sites (principal); Z78.0 Asymptomatic menopausal state
CPT/HCPCS: 77080

== ENCOUNTER 2022-03-15 18:45 | Emergency (ER) | payer MEDICARE ==
[2022-03-15] MEDS ORDERED: SODIUM CHLORIDE 0.9% 1,000 ML IV STA (19:40)
[2022-03-15] MEDS ORDERED: MORPHINE SULFATE 4 MG/ML SYRINGE IV STA (19:40)
[2022-03-15] MEDS ORDERED: KETOROLAC 15 MG/ML 1 ML VIAL IVP STA (19:40)
[2022-03-15] MEDS ORDERED: ONDANSETRON 4 MG/2 ML VIAL IVP STA (19:46)
--- NOTE | 2022-03-15 19:46 | ED ---
General Adult HPI - General Chief complaint: Abdominal Pain Stated complaint: possible kidney stone Time Seen by Provider: 03/15/22 19:26 Source: patient Mode of arrival: ambulatory Limitations: no limitations - History of Present Illness Initial comments: Dictation was produced using [employer] dictation software. please excuse any grammatical, word or spelling errors. Chief Complaint: 66-year-old female presents to the emergency Department with left-sided flank pain History of Present Illness: Is 66-year-old female she presents to the emergency department for left-sided flank pain. Patient states that her pain began approximately 1-1/2 hours prior to arrival. Patient denies any history of kidney stones. She localizes the pain to her left lower back area. States that it feels like it shoots towards her anterior abdomen on the left side. Patient does complain of nausea. No fevers. No chills or night sweats. Patient denies any diarrhea. The ROS documented in this emergency department record has been reviewed and co nfirmed by me. Those systems with pertinent positive or negative responses have been documented in the HPI. All other systems are other negative and/or noncontributory. PHYSICAL EXAM: General Impression: Alert and oriented x3, acute distress secondary to pain HEENT: Normocephalic atraumatic, extra-ocular movements intact, pupils equal and reactive to light bilaterally, mucous membranes moist. Cardiovascular: Heart regular rate and rhythm Chest: Able to complete full sentences, no retractions, no tachypnea Abdomen: abdomen soft, non-tender, non-distended, no organomegaly Musculoskeletal: Pulses present and equal in all extremities, no peripheral edema Motor: no focal deficits noted Neurological: CN II-XII grossly intact, no focal motor or sensory deficits noted Skin: Intact with no visualized rashes Psych: Normal affect and mood ED course: 66-year-old female presents to the ER for acute onset severe flank pain. Clinical presentation suspicious for obstructing nephrolithiasis. Vital signs upon arrival are within acceptable limits. Laboratory evaluation obtained. CBC, coag panel, metabolic panel is unremarkable. Computed tomography scan abdomen and pelvis without contrast was obtained showing mild left hydroureteronephrosis and 4 mm calculus at the UVJ. Patient reevaluated at bedside at 9:05 PM found to be in stable medical condition. She does report that her symptoms are significant improved. Patient refuses any analgesics/.The patient likely had passed the stone. Patient be discharged. Patient given referral to urology. - Related Data Home Medications Medication Instructions Recorded Confirmed Vitamin B Complex 1 cap PO DAILY 10/16/13 03/15/22 amLODIPine [Norvasc] 5 mg PO DAILY 10/16/13 03/15/22 Ascorbic Acid [Vitamin C] 1,000 mg PO DAILY 01/03/17 03/15/22 Aspirin EC [Ecotrin Low Dose] 81 mg PO HS 01/03/17 03/15/22 Calcium Carbonate/Vitamin D3 2 cap PO DAILY 01/03/17 03/15/22 [Calcium 600-Vit D3 500 Softgel] Metoprolol Tartrate [Lopressor] 12.5 mg PO DAILY PRN 01/03/17 03/15/22 Losartan Potassium 100 mg PO HS 05/25/18 03/15/22 nadoloL [Corgard] 20 mg PO DAILY 05/25/18 03/15/22 Alpha Lipoic Acid 600 mg PO DAILY 07/08/21 03/15/22 Cholestyramine (with Sugar) 4 gm PO DAILY 07/08/21 03/15/22 [Cholestyramine Packet] Fluvastatin Sodium [Lescol] 20 mg PO HS 07/08/21 03/15/22 Ubidecarenone [Co Q-10] 200 mg PO DAILY 07/08/21 03/15/22 Sertraline [Zoloft] 50 mg PO DAILY 03/15/22 03/15/22 Allergies Allergy/AdvReac Type Severity Reaction Status Date / Time clarithromycin [From Biaxin] Allergy Unknown Verified 03/15/22 18:56 sumatriptan [From Imitrex] Allergy Rapid Verified 03/15/22 18:56 Heart Rate Tetracyclines Allergy Swelling Verified 03/15/22 18:56 linezolid [From Zyvox] AdvReac Weakness Verified 03/15/22 18:56 In Legs ramipril [From Altace] AdvReac Cough Verified 03/15/22 18:56 rosuvastatin calcium AdvReac Myalgia Verified 03/15/22 18:56 [From Crestor] scopolamine AdvReac Rash/Hives Verified 03/15/22 18:56 sulfamethoxazole AdvReac Fever Verified 03/15/22 18:56 [From Bactrim] trimethoprim [From Bactrim] AdvReac Fever Verified 03/15/22 18:56 Review of Systems ROS Statement: Those systems with pertinent positive or pertinent negative responses have been documented in the HPI. ROS Other: All systems not noted in ROS Statement are negative. Past Medical History Past Medical History: Hyperlipidemia, Hypertension Additional Past Medical History / Comment(s): bigemminal PAC's, History of Any Multi-Drug Resistant Organisms: MRSA Date of last positivie culture/infection: 2008 MDRO Source:: right leg Past Surgical History: Orthopedic Surgery, Tubal Ligation Additional Past Surgical History / Comment(s): D&C, LEFT KNEE REPLACEMENT, MENISCUS REPAIR Past Psychological History: No Psychological Hx Reported Smoking Status: Never smoker Past Alcohol Use History: Occasional Past Drug Use History: None Reported General Exam Limitations: no limitations Course Vital Signs 03/15/22 03/15/22 18:53 19:45 Temperature 98.2 F 98.4 F Pulse Rate 69 94 Respiratory 20 17 Rate Blood Pressure 192/92 184/101 O2 Sat by Pulse 99 97 Oximetry Medical Decision Making - Lab Data Result diagrams: 03/15/22 20:15 03/15/22 20:15 Lab Results 03/15/22 03/15/22 03/15/22 Range/Units 20:15 20:15 20:15 WBC 6.1 (3.8-10.6) k/uL RBC 4.57 (3.80-5.40) m/uL Hgb 14.4 (11.4-16.0) gm/dL Hct 41.0 (34.0-46.0) % MCV 89.7 (80.0-100.0) fL MCH 31.5 (25.0-35.0) pg MCHC 35.2 (31.0-37.0) g/dL RDW 12.6 (11.5-15.5) % Plt Count 298 (150-450) k/uL MPV 8.0 Neutrophils % 63 % Lymphocytes % 28 % Monocytes % 5 % Eosinophils % 2 % Basophils % 1 % Neutrophils # 3.8 (1.3-7.7) k/uL Lymphocytes # 1.7 (1.0-4.8) k/uL Monocytes # 0.3 (0-1.0) k/uL Eosinophils # 0.1 (0-0.7) k/uL Basophils # 0.0 (0-0.2) k/uL PT 10.8 (9.0-12.0) sec INR 1.0 (<1.2) APTT 23.1 (22.0-30.0) sec Sodium 139 (137-145) mmol/L Potassium 4.4 (3.5-5.1) mmol/L Chloride 104 (98-107) mmol/L Carbon Dioxide 24 (22-30) mmol/L Anion Gap 11 mmol/L BUN 19 H (7-17) mg/dL Creatinine 0.64 (0.52-1.04) mg/dL Est GFR (CKD-EPI)AfAm >90 (>60 ml/min/1.73 sqM) Est GFR (CKD-EPI)NonAf >90 (>60 ml/min/1.73 sqM) Glucose 112 H (74-99) mg/dL Calcium 10.1 (8.4-10.2) mg/dL Total Bilirubin 1.0 (0.2-1.3) mg/dL AST 35 (14-36) U/L ALT 14 (4-34) U/L Alkaline Phosphatase 100 (38-126) U/L Total Protein 8.2 (6.3-8.2) g/dL Albumin 5.0 (3.5-5.0) g/dL Lipase 309 H (23-300) U/L Disposition Clinical Impression: Nephrolithiasis Disposition: HOME SELF-CARE Condition: Good Is patient prescribed a controlled substance at d/c from ED?: No Referrals: Sheldon Eason MD [STAFF PHYSICIAN] - 1-2 days Time of Disposition: 21:28
[2022-03-15 19:47] VITALS: TEMP 98.4
[2022-03-15 20:26] LABS: Basophils % (A) 1 %; Eosinophils # (A) 0.1 k/uL (0-0.7); Eosinophils % (A) 2 %; HGB 14.4 gm/dL (11.4-16.0); Lymphocytes # (A) 1.7 k/uL (1.0-4.8); Lymphocytes % (A) 28 %; MCH 31.5 pg (25.0-35.0); MCHC 35.2 g/dL (31.0-37.0); MCV 89.7 fL (80.0-100.0); Monocytes # (A) 0.3 k/uL (0-1.0); Monocytes % (A) 5 %; Neutrophils # (A) 3.8 k/uL (1.3-7.7); Neutrophils % (A) 63 %; Platelet Count 298 k/uL (150-450); RBC 4.57 m/uL (3.80-5.40); RDW 12.6 % (11.5-15.5); WBC 6.1 k/uL (3.8-10.6)
--- NOTE | 2022-03-15 20:29 | CT ---
EXAMINATION TYPE: CT abdomen pelvis wo con CT DLP: 653.4 mGycm, Automated exposure control for dose reduction was used. DATE OF EXAM: 03/15/2022 8:02 PM COMPARISON: CT abdomen pelvis most recent from 01/03/2017 CLINICAL INDICATION:Female, 66 years old with history of flank pain; TECHNIQUE: Axial CT of the abdomen and pelvis. Sagittal and coronal reformats were created on a [employer] workstation. Contrast used: None Oral contrast used: without Oral Contrast FINDINGS: LOWER CHEST: Heart is mildly enlarged for size. ABDOMEN LIVER: Unremarkable GALLBLADDER AND BILE DUCTS: Unremarkable. PANCREAS: Unremarkable. SPLEEN: Unremarkable. ADRENAL GLANDS: Unremarkable. KIDNEYS AND URETERS: 4 mm calculus at the ureterovesicular junction on the left. This results in mild left hydronephrosis. Additional nonobstructing bilateral renal calculi. PELVIS BLADDER: Unremarkable REPRODUCTIVE: Unremarkable. ABDOMEN & PELVIS STOMACH AND BOWEL: No evidence of bowel obstruction. PERITONEUM: No evidence of pneumoperitoneum or free fluid. VASCULATURE: No evidence of aortic aneurysm. MUSCULOSKELETAL: No acute osseous abnormalities, grade 1 anterolisthesis of L4 and L5 without spondyl olysis. Mild multilevel disc degeneration changes are present throughout the spine. LYMPH NODES: No gross evidence for lymphadenopathy. SOFT TISSUE/ABDOMINAL WALL: Diastasis of the rectus abdominis muscle. IMPRESSION: Mild left hydroureteronephrosis secondary obstructing 4 mm calculus at the ureterovesicular junction. Additional Nonobstructing renal calculi bilaterally.
[2022-03-15 20:37] LABS: Partial Thromboplastin Time 23.1 sec (22.0-30.0); Prothrombin Time 10.8 sec (9.0-12.0)
[2022-03-15 20:38] LABS: ALT 14 U/L (4-34); African American GFR (CKD) >90 (>60 ml/min/1.73 sqM); Anion Gap 11 mmol/L; Blood Urea Nitrogen 19 mg/dL (7-17); Calcium 10.1 mg/dL (8.4-10.2); Carbon Dioxide 24 mmol/L (22-30); Chloride 104 mmol/L (98-107); Glucose 112 mg/dL (74-99); Lipase 309 U/L (23-300); Non-African American GFR(CKD) >90 (>60 ml/min/1.73 sqM); Sodium 139 mmol/L (137-145)
[2022-03-15 20:45] LABS: AST 35 U/L (14-36); Alkaline Phosphatase 100 U/L (38-126); Potassium 4.4 mmol/L (3.5-5.1); Total Protein 8.2 g/dL (6.3-8.2)
[2022-03-15 21:35] VITALS: BP 167/84; PULSE 77; RESP 16
[2022-03-15 21:55] LABS: Amorphous Sediment,Urine Few /hpf; Appearance,Urine Cloudy (Clear); Bilirubin,Urine Negative (Negative); Blood,Urine Small (Negative); Color,Urine Light Yellow; Glucose,Urine (UA) Negative (Negative); Ketones,Urine Negative (Negative); Leukocyte Esterase,Urine Negative (Negative); Mucus,Urine Rare /hpf; Nitrite,Urine Negative (Negative); Protein,Urine Trace (Negative); RBC,Urine 55 /hpf (0-5); Specific Gravity,Urine 1.011 (1.001-1.035); Urobilinogen,Urine <2.0 mg/dL (<2.0)
== END 2022-03-15 21:43 | disposition home or self-care (01) ==
LOC: EC 18:45
DX: N20.0 Calculus of kidney (principal); E78.5 Hyperlipidemia, unspecified; I10 Essential (primary) hypertension; Z88.2 Allergy status to sulfonamides; Z88.8 Allergy status to other drugs, medicaments and biological substances; Z79.82 Long term (current) use of aspirin; Z79.899 Other long term (current) drug therapy
CPT/HCPCS: 36415; 80053; 83690; 85025; 85610; 85730; 81001; 74176; 99284; 96374; 96375; 96361; J2405; J1885

== ENCOUNTER → 2022-03-29 | Outpatient (CLI) | payer MEDICARE ==
--- NOTE | 2022-03-29 16:13 | P.PN ---
Progress Note - Text Progress Note Date: 03/29/22 66-year-old female patient with known history of severe obstructive sleep apnea with an AHI of 58, coming in for a annual checkup regarding his LUCIEN treatment. Her interval history is positive for some kidney stone issues and complications. She is currently off Zoloft. Her blood pressures being monitored very closely by her primary care physician. Her most recent blood pressure regimen includes Norvasc 5 mg by mouth daily, valsartan 320 mg by mouth daily and nadolol 20 mg by mouth daily. She reports a better blood pressure control for now. No new complaints. She is on CPAP therapy at a pressure of 8 cm of water. Based on a 30 day compliancy a comedonal her machine, the patient has been using the machine more than 4 hours 100% of the time and her leak is in order of 12 L/m and her AHI is down to 3.9 while on treatment. She is using the nasal pillows air fit p 10 medium-size. No significant weight gain. Her weight is stable at 170 pounds. Her current [place] score is down to 5. No angina P no palpitation. No chest pain. No shortness of breath. No hypersomnia or sleep iness during the day. No snoring while on the CPAP machine. She sleeps on her back. She is a nose breather. BP is 143/88 with a pulse of 66 and the respiration of 14 and the temperature of 97 with an [place] score of 5 and an oxygen saturation of 98% and a weight of 171 pounds. The patient appeared well nourished and normally developed. Vital signs as documented. Head exam is unremarkable. No scleral icterus or corneal arcus noted. Neck is without jugular venous distension, thyromegaly, or carotid bruits. Carotid upstrokes are brisk bilaterally. Lungs are clear to auscultation and percussion. Cardiac exam reveals the PMI to be normally sized and situated. Rhythm is regular. First and second heart sounds normal. No murmurs, rubs or gallops. Abdominal exam reveals normal bowel sounds, no masses, no organomegaly and no aortic enlargement. Extremities are nonedematous and both femoral and pedal pulses are normal. Examination of the skin revealed no evidence of sig nificant rashes, suspicious appearing nevi or other concerning lesions.. Neurologically, the patient is awake and alert and the patient does not have any focal neurological deficit. Cranial nerves are essentially intact. Assessment Severe LUCIEN, AHI of 58, successful CPAP therapy at a pressure of 8 Chronic hypersomnia, recovered and Minneapolis score is down to 5 Hypertension Chronic anxiety Hyperlipidemia History of chronic back pain related to lumbar spinal stenosis Degenerative arthritis Plan Treatment is successful. No need for any pressure adjustments. Encourage weight loss. Refill all of her supplies including the nasal pillow. Machine is functional. See me back in a year's time in follow-up.
== END | disposition home or self-care (01) ==
LOC: SLEEP 15:41
PROVIDERS: ATTEND Internal Medicine Critical Care Medicine
DX: G47.33 Obstructive sleep apnea (adult) (pediatric) (principal); Z99.89 Dependence on other enabling machines and devices; I10 Essential (primary) hypertension; E78.5 Hyperlipidemia, unspecified; F41.9 Anxiety disorder, unspecified; M48.061 Spinal stenosis, lumbar region without neurogenic claudication; M19.90 Unspecified osteoarthritis, unspecified site; Z88.1 Allergy status to other antibiotic agents; Z88.2 Allergy status to sulfonamides; Z88.8 Allergy status to other drugs, medicaments and biological substances

== ENCOUNTER → 2022-04-21 | Outpatient (CLI) | payer MEDICARE ==
--- NOTE | 2022-04-21 14:43 | XR ---
EXAMINATION TYPE: XR KUB DATE OF EXAM: 04/21/2022 Comparison: 01/03/2017 Clinical History: 66-year-old female N20.1 calculus of kidney ureter Findings: Mild stool burden. Right-sided renal calculi are noted. These may measure up to 4 mm. At least 3 calc ifications are present. No dilated small bowel loops. Lung bases are clear. Supine imaging limited fo r assessment of free air. Impression: Suspect underlying right-sided nephrolithiasis. At least 3 calcifications measuring up to 4 mm.
--- NOTE | 2022-04-21 15:39 | US ---
EXAMINATION TYPE: US kidneys/renal and bladder DATE OF EXAM: 04/21/2022 COMPARISON: Correlation CT 03/15/2022. CLINICAL HISTORY: 66-year-old female N20.0 CALCULUS OF KIDNEY. History of multiple stones bilaterally , recently passed stone with in EC TECHNIQUE: Multiple sonographic images of the kidneys and bladder are obtained. FINDINGS: EXAM MEASUREMENTS: Right Kidney: 9.1 x 4.6 x 5.1 cm Left Kidney: 10.2 x 4.7 x 5.2 cm Right Kidney: probable cluster of stones seen mid pole, with aggregate dimension of 1.0 x 0.9 x 0.7cm in size . No hydronephrosis. Left Kidney: multiple potential stones, largest was mid pole = 1.0 x 0.6cm. No hydronephrosis. Bladder: wnl Bilateral Jets seen: yes IMPRESSION: Echogenic foci compatible with bilateral renal calculi. The hydronephrosis seen on recent CT has reso lved.
== END | disposition home or self-care (01) ==
LOC: RADUSWWP 10:03
PROVIDERS: ATTEND Urology
DX: N20.0 Calculus of kidney (principal); N21.1 Calculus in urethra
CPT/HCPCS: 74018; 76770

== ENCOUNTER → 2022-05-30 | Outpatient (CLI) | payer MEDICARE ==
--- NOTE | 2022-05-31 20:42 | MM ---
Reason for Exam: Screening (asymptomatic). Last screening mammogram was performed 12 month(s) ago. Patient History: Menarche at age 13. First Full-Term at age 30. Late child-bearing (after 30). Postmenopausal. Patient has history of breast feeding. 1994, Benign Core Biopsy on the right side. Mother had breast cancer, age 65. Risk Values: Nelia 5 year model risk: 4.0%. NCI Lifetime model risk: 13.3%. Prior Study Comparison: 05/23/2019 Bilateral Screening Mammogram, [facility]. 05/26/2020 Bilateral Screening Mammogram, [facility]. 05/27/2021 Bilateral Screening Mammogram, [facility]. Tissue Density: The breast tissue is heterogeneously dense. This may lower the sensitivity of mammography. Findings: Analyzed By CAD. Chronic nodularity anterior depth right breast. Prominent bilateral axillary lymph nodes are redemonstrated. No significant change from prior exams. Overall Assessment: Benign, BI-RAD 2 Management: Screening Mammogram of both breasts in 1 year. 1. Note that per NCCN guidelines, a five-year risk assessment greater than 1.67% is used to assess eligibility for a risk reducing agent. 2. Patient should continue monthly self breast exams. 3. This exam should not preclude additional follow-up of suspicious palpable abnormalities. Electronically signed and approved by: Victor M Dunn M.D. Radiologist
== END | disposition home or self-care (01) ==
LOC: RADMAMWWP 14:57
PROVIDERS: ATTEND Surgery
DX: Z12.31 Encounter for screening mammogram for malignant neoplasm of breast (principal); Z78.0 Asymptomatic menopausal state; Z80.3 Family history of malignant neoplasm of breast
CPT/HCPCS: 77063; 77067

== ENCOUNTER → 2023-05-23 | Outpatient (CLI) | payer MEDICARE ==
--- NOTE | 2023-05-23 17:53 | P.PN ---
Progress Note - Text Progress Note Date: 05/23/23 This is a 66-year-old female patient is coming in for an annual checkup regarding obstructive sleep apnea. The patient has severe case otherwise a with an AHI of 58 and the patient is still being treated with a CPAP pressure of 8 cm of water. Her weight is up by around 14 pounds since her last evaluation currently she is waiting 184 pounds. Despite all this, she is extremity compliant to CPAP machine. She went for about the left facial shingles and this was treated and she still having some residual pain in her ear and the face. This was on the left side. Nevertheless, this did not affect her CPAP compliancy. Her compliance is in order of 100% and she is achieving more than 4 hours of usage 100% of the time. She is averaging about 8.5 hours of CPAP use per night. The leak is in order of 12 L/m and had AHI down to 2.5. She has no other complaints otherwise for now. She is using a nasal pillow, air fit p10 and she is also requesting refills on her supplies. No other new problems or comorbidities Vitals reviewed and BP of 132/85, pulse is 70, respirations 12, weight is 184, temperature is 98.5, Baskin score is at 5 The patient appeared well nourished and normally developed. Vital signs as documented. Head exam is unremarkable. No scleral icterus or corneal arcus noted. Neck is without jugular venous distension, thyromegaly, or carotid bruits. Carotid upstrokes are brisk bilaterally. Lungs are clear to auscultation and percussion. Cardiac exam reveals the PMI to be normally sized and situated. Rhythm is regular. First and second heart sounds normal. No murmurs, rubs or gallops. Abdominal exam reveals normal bowel sounds, no masses, no organomegaly and no aortic enlargement. Extremities are nonedematous and both femoral and pedal pulses are normal.Examination of the skin revealed no evidence of significant rashes, suspicious appearing nevi or other concerning lesions.Neurologically, the patient is awake and alert and the patient does not have any focal neurological deficit. Cranial nerves are essentially intact. Assessment Symptomatically obstructive sleep apnea, severe with an AHI of 58 and the patient appears to be successfully treated with a CPAP pressure of 8 cm of water. No active issues for now. No major hypersomnia or sleepiness during the day. Shingles of the face, recovered Hypertension Hyperlipidemia Chronic back pain Lumbar spine stenosis Degenerative arthritis Hypertension Plan Continue CPAP therapy the same level of pressure. The machine is functional. No need for replacement. Encourage weight loss. Refills on her supplies will be given and the patient will see me back in one year's time in follow-up. I checked the machine at a machine is functional. No other issues for now.
[2023-05-23 18:44] LABS: ALT 14 U/L (8-44); AST 21 U/L (13-35); Albumin 4.6 g/dL (3.8-4.9); Albumin/Globulin Ratio 1.64 Ratio (1.60-3.17); Alkaline Phosphatase 91 U/L (41-126); BUN/Creat Ratio 18.25 Ratio (12.00-20.00); Blood Urea Nitrogen 14.6 mg/dL (9.0-27.0); Calcium 9.6 mg/dL (8.7-10.3); Carbon Dioxide 25.1 mmol/L (21.6-31.8); Chloride 105 mmol/L (96-109); Chol/HDL Ratio 4.11 Ratio; Globulin 2.8 g/dL (1.6-3.3); Glucose 103 mg/dL (70-110); LDL Cholesterol,Calculated 141.4 mg/dL (0.0-131.0); Potassium 4.1 mmol/L (3.5-5.5); Sodium 143 mmol/L (135-145); Total Bilirubin 0.4 mg/dL (0.3-1.2); Total Protein 7.4 g/dL (6.2-8.2)
== END | disposition home or self-care (01) ==
LOC: LABWHC1 14:12
PROVIDERS: ATTEND Internal Medicine
DX: E78.2 Mixed hyperlipidemia (principal); G47.33 Obstructive sleep apnea (adult) (pediatric); Z76.0 Encounter for issue of repeat prescription; B02.9 Zoster without complications; I10 Essential (primary) hypertension; E78.5 Hyperlipidemia, unspecified; M48.061 Spinal stenosis, lumbar region without neurogenic claudication; G89.29 Other chronic pain
CPT/HCPCS: 36415; 80053; 80061

== ENCOUNTER → 2023-05-23 | Outpatient (CLI) | payer MEDICARE ==
--- NOTE | 2023-05-26 14:23 | P.PN ---
Progress Note - Text Progress Note Date: 05/23/23 This is a 66-year-old female patient is coming in for an annual checkup regarding obstructive sleep apnea. The patient has severe case otherwise a with an AHI of 58 and the patient is still being treated with a CPAP pressure of 8 cm of water. Her weight is up by around 14 pounds since her last evaluation currently she is waiting 184 pounds. Despite all this, she is extremity compliant to CPAP machine. She went for about the left facial shingles and this was treated and she still having some residual pain in her ear and the face. This was on the left side. Nevertheless, this did not affect her CPAP compliancy. Her compliance is in order of 100% and she is achieving more than 4 hours of usage 100% of the time. She is averaging about 8.5 hours of CPAP use per night. The leak is in order of 12 L/m and had AHI down to 2.5. She has no other complaints otherwise for now. She is using a nasal pillow, air fit p10 and she is also requesting refills on her supplies. No other new problems or comorbidities Vitals reviewed and BP of 132/85, pulse is 70, respirations 12, weight is 184, temperature is 98.5, Tomah score is at 5 The patient appeared well nourished and normally developed. Vital signs as documented. Head exam is unremarkable. No scleral icterus or corneal arcus noted. Neck is without jugular venous distension, thyromegaly, or carotid bruits. Carotid upstrokes are brisk bilaterally. Lungs are clear to auscultation and percussion. Cardiac exam reveals the PMI to be normally sized and situated. Rhythm is regular. First and second heart sounds normal. No murmurs, rubs or gallops. Abdominal exam reveals normal bowel sounds, no masses, no organomegaly and no aortic enlargement. Extremities are nonedematous and both femoral and pedal pulses are normal.Examination of the skin revealed no evidence of significant rashes, suspicious appearing nevi or other concerning lesions.Neurologically, the patient is awake and alert and the patient does not have any focal neurological deficit. Cranial nerves are essentially intact. Assessment Symptomatically obstructive sleep apnea, severe with an AHI of 58 and the patient appears to be successfully treated with a CPAP pressure of 8 cm of water. No active issues for now. No major hypersomnia or sleepiness during the day. Shingles of the face, recovered Hypertension Hyperlipidemia Chronic back pain Lumbar spine stenosis Degenerative arthritis Hypertension Plan Continue CPAP therapy the same level of pressure. The machine is functional. No need for replacement. Encourage weight loss. Refills on her supplies will be given and the patient will see me back in one year's time in follow-up. I checked the machine at a machine is functional. No other issues for now.
== END ==
LOC: 3 N SLEEP 13:09
PROVIDERS: ATTEND Internal Medicine Critical Care Medicine
DX: G47.33 Obstructive sleep apnea (adult) (pediatric) (principal); E78.5 Hyperlipidemia, unspecified; I10 Essential (primary) hypertension; G89.29 Other chronic pain; B02.9 Zoster without complications; M48.061 Spinal stenosis, lumbar region without neurogenic claudication; Z99.89 Dependence on other enabling machines and devices; Z88.1 Allergy status to other antibiotic agents; Z88.8 Allergy status to other drugs, medicaments and biological substances; Z88.2 Allergy status to sulfonamides; Z79.82 Long term (current) use of aspirin; Z79.899 Other long term (current) drug therapy
CPT/HCPCS: 99212

== ENCOUNTER → 2023-05-31 | Outpatient (CLI) | payer MEDICARE ==
--- NOTE | 2023-06-01 20:13 | MM ---
Reason for Exam: Screening (asymptomatic). Last screening mammogram was performed 12 month(s) ago. Patient History: Menarche at age 13. First Full-Term at age 30. Late child-bearing (after 30). Postmenopausal. Patient has history of breast feeding. 1994, Benign Core Biopsy on the right side. Mother had breast cancer, age 65. Risk Values: Nelia 5 year model risk: 4.1%. NCI Lifetime model risk: 12.8%. Prior Study Comparison: 05/26/2020 Bilateral Screening Mammogram, [facility]. 05/27/2021 Bilateral Screening Mammogram, [facility]. 05/30/2022 Bilateral MG 3D screening mammo w/cad, [facility]. Tissue Density: The breast tissue is heterogeneously dense. This may lower the sensitivity of mammography. Findings: Analyzed By CAD. There is chronic nodularity on the right. There is no suspicious group of microcalcifications or new suspicious mass in either breast. Overall Assessment: Benign, BI-RAD 2 Management: Screening Mammogram of both breasts in 1 year. See note below in regards to patient's increased 5 year Nelia score . Patient should continue monthly self-breast exams. A clinical breast exam by your physician is recommended on an annual basis. This exam should not preclude additional follow-up of suspicious palpable abnormalities. Note on Nelia scores and lifetime risk: 1. A Nelia score greater than 3% is considered moderate risk. If this is the case, consider specialist referral to assess eligibility for a risk reducing agent. 2. If overall lifetime risk for the development of breast cancer is 20% or higher, the patient may qualify for future screening with alternating mammogram and breast MRI. Electronically signed and approved by: Victor M Dunn M.D. Radiologist
== END | disposition home or self-care (01) ==
LOC: RADMAMWWP 08:59
PROVIDERS: ATTEND Surgery
DX: Z12.31 Encounter for screening mammogram for malignant neoplasm of breast (principal); Z13.1 Encounter for screening for diabetes mellitus; Z78.0 Asymptomatic menopausal state; Z80.3 Family history of malignant neoplasm of breast
CPT/HCPCS: 77063; 77067

== ENCOUNTER → 2023-06-09 | Outpatient (CLI) | payer MEDICARE ==
--- NOTE | 2023-06-09 12:19 | P.PN ---
Subjective Progress Note Date: 06/09/23 Principal diagnosis: fibrocystic breast changes fibrocystic breast changes Britany a 68-year-old white female who presents for breast examination secondary to fibrocystic breast changes. She underwent a bilateral mammogram on 05-31-23 which was benign BIRADS 2. This showed chronic nodularity in the right breast with no discrete abnormality. The patient does not report any lumps masses or nodules in her breasts. She is not complaining of any nipple discharge. She is not complaining of any pain in her breast. She has no history of any trauma to her breast. No recent infection in her breast. Patient does not use any soy products. She does not take any hormone replacement. Rodger risk: 5-year: 4.1% NCI risk: 12.8% We have discussed chemoprophylaxis and at this time the patient has declined Caffeine: Negative Smoke: Negative Chocolate: Occasional Family history: Mother: Breast cancer at 65 Hormonal history: Menarche: 13 Pregnancies: 3, first at 30, breast-fed: All Menopause: 47 control pills: Negative Hormones: Negative Past surgical history: 1. D&C 2. Tubal ligation 3. total knee replacement left Medical history: 1. Hypertension 2. Palpitation 3. high cholesterol 4. kidney stones Mar.15 Social history: Smoke: Negative Alcohol: Negative Drugs: Negative Constitutional: HEENT: Negative Cardiovascular: Palpitations at times Respiratory: Negative GI: Negative : kidney stones Musculoskeletal: Lower back pain Neurologic: Negative Psychiatric: Negative Endocrine: Negative Hematologic: Aspirin daily Objective - Constitutional General appearance: Present: cooperative - EENT ENT: Present: hearing grossly normal - Neck Neck: Present: normal ROM - Respiratory Respiratory: bilateral: CTA - Cardiovascular Heart sounds: normal: S1, S2 - Gastrointestinal General gastrointestinal: Present: soft - Integumentary Integumentary: Present: normal turgor - Musculoskeletal Musculoskeletal: Present: gait normal - Psychiatric Psychiatric: Present: A&O x's 3, appropriate affect, intact judgment & insight - Additional findings Additional findings: Breast Exam: BRA: 38C inspection: grade 2 ptosis bilaterally Palpation: Right breast: Multi positional exam fibrocystic changes no dominant masses or nodules of, moved lateral aspect of right breast on 08-20-2021 seborrheic keratosis right axilla: No adenopathy of concern Left breast: Multi-positional exam fibrocystic changes no dominant masses or nodules of concern Left axilla: No adenopathy of concern Assessment and Plan Assessment: Impression: fibrocystic breast disease we discussed chemoprophylaxis and at this time patient has declined; Rodger risk 41% Plan: bilateral mammogram 1 year 2024 appointment 1 years CC: Dr. Antunez
[2023-06-09 12:40] VITALS: BP 125/66; PULSE 70; RESP 18; TEMP 98.6
== END ==
LOC: WWCWWP 11:46
PROVIDERS: ATTEND Surgery
DX: N60.11 Diffuse cystic mastopathy of right breast (principal); E78.00 Pure hypercholesterolemia, unspecified; I10 Essential (primary) hypertension; Z80.3 Family history of malignant neoplasm of breast; Z87.442 Personal history of urinary calculi; Z88.1 Allergy status to other antibiotic agents; Z88.8 Allergy status to other drugs, medicaments and biological substances; Z88.2 Allergy status to sulfonamides; Z79.82 Long term (current) use of aspirin; Z79.899 Other long term (current) drug therapy

== ENCOUNTER → 2023-10-18 | Outpatient (CLI) | payer MEDICARE ==
[2023-10-18 10:47] VITALS: BP 120/74; PULSE 93; RESP 16; TEMP 98.4
--- NOTE | 2023-10-18 13:45 | P.HPOB ---
History of Present Illness H&P Date: 10/18/23 Chief Complaint: The patient is here for her routine gynecologic exam and ma mmogram. This is a 68-year-old G3, P3 with an LMP of 2001. Patient is here to establish with this office. It has been about 3 years since her last pelvic exam. She previously saw Dr. Galaviz for her ongoing gynecologic care. She is without gynecologic complaints and denies any postmenopausal bleeding. Review of Systems The patient has gained 12 pounds over the last year. She believes she needs to be more active and eat less sweets. She denies respiratory, cardiac, or G.I. problems. Past Medical History Past Medical History: Hyperlipidemia, Hypertension, Sleep Apnea/CPAP/BIPAP Additional Past Medical History / Comment(s): bigemminal PAC's, intermittent tachycardia, hip problems, osteopenia, kidney stones. 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 History of Any Multi-Drug Resistant Organisms: MRSA Date of last positivie culture/infection: 2008 MDRO Source:: right leg Past Surgical History: Breast Surgery, Joint Replacement, Orthopedic Surgery, Tubal Ligation Additional Past Surgical History / Comment(s): D&C, LEFT KNEE REPLACEMENT, MENISCUS REPAIR. Right breast biopsy, foot surgery. Colonoscopy 2021(next after 5yr). Past Psychological History: No Psychological Hx Reported Smoking Status: Never smoker Past Alcohol Use History: Rare (10 drinks per year.) Past Drug Use History: None Reported Additional History: The patient has been since 1976. 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 - Past Family History Mother Family Medical History: Cancer, CVA/TIA, Hypertension Additional Family Medical History / Comment(s): . Breast cancer. Father Family Medical History: CVA/TIA, Hypertension Additional Family Medical History / Comment(s): . Medications and Allergies Home Medications Medication Instructions Recorded Confirmed Type Vitamin B Complex 1 cap PO DAILY 10/16/13 10/18/23 History amLODIPine [Norvasc] 5 mg PO HS 10/16/13 10/18/23 History Ascorbic Acid [Vitamin C] 1,000 mg PO DAILY 01/03/17 10/18/23 History Aspirin EC [Ecotrin Low Dose] 81 mg PO HS 01/03/17 10/18/23 History Calcium Carbonate/Vitamin D3 2 cap PO DAILY 01/03/17 10/18/23 History [Calcium 600-Vit D3 500 Softgel] Metoprolol Tartrate [Lopressor] 12.5 mg PO DAILY PRN 01/03/17 10/18/23 History nadoloL [Corgard] 20 mg PO DAILY 05/25/18 10/18/23 History Alpha Lipoic Acid 600 mg PO DAILY 07/08/21 10/18/23 History Ubidecarenone [Co Q-10] 200 mg PO DAILY 07/08/21 10/18/23 History Sertraline [Zoloft] 25 mg PO HS 03/15/22 10/18/23 History Atorvastatin [Lipitor] 40 mg PO HS 06/09/23 10/18/23 History Ezetimibe [Zetia] 10 mg PO HS 06/09/23 10/18/23 History Glucosam/Cameron-Msm1/C/Robert/Bosw 1 each PO DAILY 06/09/23 10/18/23 History [Glucosamine-Chondroitin Tablet] Multivitamin [Multivitamins Adult 1 each PO DAILY 06/09/23 10/18/23 History Gummies] Potassium Citrate [Potassium 20 meq PO TID 06/09/23 10/18/23 History Citrate ER] Valsartan 320 mg PO DAILY 06/09/23 10/18/23 History Zinc Gluconate [Zinc] 50 mg PO DAILY 06/09/23 10/18/23 History Triamcinolone Acetonide [Nasacort] 10.8 ml NASAL DAILY 10/18/23 10/18/23 History Allergies Allergy/AdvReac Type Severity Reaction Status Date / Time clarithromycin [From Biaxin] Allergy Unknown Verified 10/18/23 10:40 sumatriptan [From Imitrex] Allergy Rapid Verified 10/18/23 10:40 Heart Rate Tetracyclines Allergy Swelling Verified 10/18/23 10:40 linezolid [From Zyvox] AdvReac Weakness Verified 10/18/23 10:40 In Legs ramipril [From Altace] AdvReac Cough Verified 10/18/23 10:40 rosuvastatin calcium AdvReac Myalgia Verified 10/18/23 10:40 [From Crestor] scopolamine AdvReac Rash/Hives Verified 10/18/23 10:40 sulfamethoxazole AdvReac Fever Verified 10/18/23 10:40 [From Bactrim] trimethoprim [From Bactrim] AdvReac Fever Verified 10/18/23 10:40 Exam Vital Signs Temp Pulse Resp BP Pulse Ox 10/18/23 10:45 98.4 F 93 16 120/74 98 Intake and Output 10/17/23 10/18/23 10/18/23 22:59 06:59 14:59 Other: Weight 84.822 kg Height 5 feet 2 inches, weight 187 pounds, BMI 34.2. This is a well-developed well-nourished white female who is alert and oriented t imes 3 in no acute distress. HEENT: Within normal limits. NECK: Supple without mass or thyromegaly. CHEST AND LUNGS: Clear to auscultation. HEART: Regular rate and rhythm. BREASTS: Are without mass or discharge. AXILLARY EXAM: Negative for adenopathy. BACK: Negative for CVA tenderness. ABDOMEN: Soft, nontender, without palpable masses. PELVIC EXAM: Normal external genitalia with mild atrophy. Cervix and vagina appear normal with mild atrophy. There is no unusual discharge. There is no evidence of prolapse. The uterus is midposition, nongravid size and nontender. There are no palpable adnexal masses or tenderness. RECTAL EXAM: Rectovaginal exam is negative for mass or tenderness and is negative for occult blood. EXTREMITIES: Nontender. IMPRESSION: 1. 68-year-old menopausal female with normal gynecologic exam. 2. No history of cervical neoplasia and the patient states she has had regular pelvic exams and Pap smears through Dr. Galaviz with no abnormalities found. PLAN: 1. Pap smear cotest was performed. If this is negative we will plan on discontinuing her Pap smears based on her age and her given history. She states she will try to get records from Dr. Galaviz's office including past Pap smears. 2. Self breast awareness was discussed with the patient. We have also discussed symptoms associated with inflammatory breast cancer. 3. Screening mammogram was done on 05/31/2023 and was benign. She will repeat this after 1 year. 4. Osteoporosis prevention was discussed. I have stressed the importance of adequate calcium, vitamin D and regular exercise. Recommended amounts of calcium and vitamin D were also discussed. She states her PCP recommended that she have a bone density test done this year. The order slip was given to the patient for this. 5. The patient was advised to return in 1-2 years for her well woman examination.
== END ==
LOC: WWCWWP 10:09
PROVIDERS: ATTEND Obstetrics & Gynecology
DX: Z01.419 Encounter for gynecological examination (general) (routine) without abnormal findings (principal); Z78.0 Asymptomatic menopausal state; Z80.3 Family history of malignant neoplasm of breast; Z88.1 Allergy status to other antibiotic agents; Z88.8 Allergy status to other drugs, medicaments and biological substances; Z88.2 Allergy status to sulfonamides

== ENCOUNTER → 2024-03-04 | Outpatient (CLI) | payer MEDICARE ==
--- NOTE | 2024-03-04 15:58 | XR ---
EXAMINATION TYPE: XR KUB DATE OF EXAM: 03/04/2024 Comparison: 04/21/2022 Clinical History: 68-year-old female N20.0 CALCULUS-KIDNEY Findings: Numerous right-sided renal calculi measuring up to 5 mm. Nonobstructive bowel gas pattern. Mild scatt ered stool. Impression: Right-sided nephrolithiasis measuring up to 5 mm. [facility], , 03/04/2024 3:56 PM
== END | disposition home or self-care (01) ==
LOC: RADXRMAIN 14:33
PROVIDERS: ATTEND Internal Medicine
DX: N20.0 Calculus of kidney (principal)
CPT/HCPCS: 74018

== ENCOUNTER → 2024-04-18 | Outpatient (CLI) | payer MEDICARE ==
--- NOTE | 2024-04-18 15:47 | BD ---
EXAMINATION TYPE: Axial Bone Density DATE OF EXAM: 04/18/2024 CLINICAL HISTORY: 68 years old Female. ICD-10 CODE: Z78.0 ASYMPTOMATIC POST JASON , Additional Histor y: Height: 61 Weight: 189 FRAX RISK QUESTIONS: Family History (Parent hip fracture): no). History of Fracture in Adulthood: yes Secondary Osteoporosis: no RISK FACTORS HISTORY OF: Surgery to Spine/Hip(right/left)/Wrist (right/left): no MEDICATIONS: Thyroid Medications: no Osteoporosis Medications: no EXAM MEASUREMENTS: Bone mineral densitometry was performed using the DEONT[employer] System. Bone mineral density as measured about the Lumbar spine is: ----- L1-L4(G/cm2): 1.064 T Score Values are as follows: ----- L1: -1.8 ----- L2: -1.4 ----- L3: -0.4 ----- L4: -0.7 ----- L1-L4: -1.0 Z Score Values are as follows: ----- L1: -0.8 ----- L2: -0.4 ----- L3: 0.5 ----- L4: 0.3 ----- L1-L4: 0.0 Bone mineral density has: Increased 4.4% since study of: 11/25/2021 Bone mineral density about the R hip (g/cm2): 0.964 Bone mineral density about the L hip (g/cm2): 0.877 T Score values are as follows: -----R Neck: -1.1 -----L Neck: -2.1 -----R Total: -0.3 -----L Total: -1.0 Z Score values are as follows: -----R Neck: 0.1 -----L Neck: -0.9 -----R Total: 0.6 -----L Total: -0.1 Bone mineral density has: Increased 3.8% since study of: 11/25/2021 FRAX%s: The graph provided illustrates a 11.3% chance for a major osteoporotic fx and a 2.1% chance f or the hips probability for fx in 10 years time. IMPRESSION: Osteopenia (T Score between -2.5 and -1). There is slightly increased risk of fracture and the patient may be considered for treatment. Re-Screen 2-5 years. NOTE: T-SCORE=SD OF THE YOUNG ADULT MEAN. [facility], , 04/18/2024 3:45 PM
== END | disposition home or self-care (01) ==
LOC: RADBDWWP 14:37
PROVIDERS: ATTEND Obstetrics & Gynecology
DX: M85.89 Other specified disorders of bone density and structure, multiple sites (principal); Z78.0 Asymptomatic menopausal state
CPT/HCPCS: 77080

== ENCOUNTER → 2024-06-13 | Outpatient (CLI) | payer MEDICARE ==
--- NOTE | 2024-06-13 13:27 | MM ---
Reason for Exam: Screening (asymptomatic). Last screening mammogram was performed 12 month(s) ago. Patient History: Menarche at age 13. First Full-Term at age 30. Late child-bearing (after 30). Postmenopausal. Patient has history of breast feeding. 1994, Benign Core Biopsy on the right side. Mother had breast cancer, age 65. Risk Values: Nelia 5 year model risk: 4.1%. NCI Lifetime model risk: 12.2%. Prior Study Comparison: 05/27/2021 Bilateral Screening Mammogram, [facility]. 05/30/2022 Bilateral MG 3D screening mammo w/cad, [facility]. 05/31/2023 Bilateral MG 3D screening mammo w/cad, [facility]. Tissue Density: There are scattered areas of fibroglandular density. Findings: Analyzed By CAD. Right breast: There is no suspicious group of microcalcifications or new suspicious mass. Left breast: There is no suspicious group of microcalcifications or new suspicious mass. Overall Assessment: Negative, BI-RAD 1 Management: Screening Mammogram of both breasts in [address] [facility] will attempt to contact patient to return for supplemental views and ultrasound if indicated. Patient should continue monthly self-breast exams. A clinical breast exam by your physician is recommended on an annual basis. This exam should not preclude additional follow-up of suspicious palpable abnormalities. Note on Nelia scores and lifetime risk: 1. A Nelia score greater than 3% is considered moderate risk. If this is the case, consider specialist referral to assess eligibility for a risk reducing agent. 2. If overall lifetime risk for the development of breast cancer is 20% or higher, the patient may qualify for future screening with alternating mammogram and breast MRI. [facility], , 06/13/2024 1:17 PM. Electronically signed and approved by: Jose Antonio Capellan DO
== END | disposition home or self-care (01) ==
LOC: RADMAMWWP 12:49
PROVIDERS: ATTEND Surgery
DX: Z12.31 Encounter for screening mammogram for malignant neoplasm of breast (principal); R92.323 Mammographic fibroglandular density, bilateral breasts; Z78.0 Asymptomatic menopausal state; Z80.3 Family history of malignant neoplasm of breast
CPT/HCPCS: 77063; 77067